=== PATIENT | female | born 1945 | race Caucasian/White ===

== ENCOUNTER 2019-11-15 12:27 | Emergency (ER) | payer MEDICARE ==
[2019-11-15 12:35] VITALS: RESP 18
[2019-11-15] MEDS ORDERED: LIDOCAINE 1% INJ 10MG/ML (20 ML MDV) SQ ONE (12:41)
--- NOTE | 2019-11-15 12:43 | ED ---
Skin/Abscess/FB HPI - General Source: patient Mode of arrival: ambulatory Limitations: no limitations <Becca Santiago - Last Filed: 11/15/19 13:36> <Tricia Coronado - Last Filed: 11/16/19 02:09> - General Chief complaint: Skin/Abscess/Foreign Body Stated complaint: sliver in finger Time Seen by Provider: 11/15/19 12:35 - History of Present Illness Initial comments: Patient is a 73-year-old female presenting to the emergency Department with complaints of a sliver in her right thumb. Patient states she was pulling tall grass 2 days ago and a piece went through her thumb. Patient states she did go to urgent care on that same day and they tried to remove the sliver but was only able to get part of it. Patient was given a tetanus shot as well as antibiotics. She returns today for another trial to remove the sliver. She states she's been having pain and some redness to the area and still believes there is something left in her thumb. She denies any fever or chills. She has no other complaints at this time. (Becca Santiago) - Related Data Allergies Allergy/AdvReac Type Severity Reaction Status Date / Time No Known Allergies Allergy Verified 11/15/19 12:35 Review of Systems ROS Other: All systems not noted in ROS Statement are negative. <Becca Santiago - Last Filed: 11/15/19 13:36> ROS Other: All systems not noted in ROS Statement are negative. <Tricia Coronado - Last Filed: 11/16/19 02:09> ROS Statement: Those systems with pertinent positive or pertinent negative responses have been documented in the HPI. 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 HEAD: Atraumatic, normocephalic. EYES: Pupils equal round and reactive to light, extraocular movements intact, sclera anicteric, conjunctiva are normal. ENT: Moist mucous membranes. NECK: Normal range of motion, supple without lymphadenopathy or JVD. LUNGS: Breath sounds clear to auscultation bilaterally and equal. No wheezes rales or rhonchi. HEART: Regular rate and rhythm without murmurs, rubs or gallops. ABDOMEN: Soft, nontender, normoactive bowel sounds. No guarding, no rebound. No masses appreciated. : Deferred EXTREMITIES: Patient has full range of motion of her right hand and fingers. Normal range of motion, no pitting or edema. No clubbing or cyanosis. NEUROLOGICAL: Normal speech, normal gait. PSYCH: Normal mood, normal affect. SKIN: Warm, Dry, normal turgor,. There is some mild erythema of the palmar aspect of the right distal thumb, as well as a possible sliver felt underneath the skin. (Becca Santiago) Course Vital Signs 11/15/19 11/15/19 12:28 13:47 Temperature 97.5 F L 97.3 F L Pulse Rate 62 66 Respiratory 18 18 Rate Blood Pressure 167/80 143/73 O2 Sat by Pulse 97 99 Oximetry Procedures <Becca Santiago - Last Filed: 11/15/19 13:36> - Procedures Initial comment: 2 mL of 1% lidocaine was injected into the right thumb and small incision was made in attempt to remove sliver. No sliver was found. Patient tolerated procedure well. (Becca Santiago) Medical Decision Making <Becca Santiago - Last Filed: 11/15/19 13:36> <Tircia Coronado - Last Filed: 11/16/19 02:09> - Medical Decision Making Patient is 73-year-old female here for possible sliver in her right thumb, palmar aspect. This happened 2 days ago. Patient is already on Keflex and received a tetanus injection. No attempt was made to remove a sliver however no sliver was seen. Patient's wound was cleaned and topical antibiotic was applied along with a bandage. She will continue with already prescribed antibiotics and keep area clean and dry. Return parameters were discussed with the patient she verbalized understanding. Patient is in agreement with this plan of care. (Becca Santiago) I was available for consultation in the emergency department. The history and physical exam were done by the midlevel provider. I was consulted for this patients care. I reviewed the case with the midlevel provider and based on their presentation of the patient, I agree with the assessment, medical decision making and plan of care as documented. Chart was dictated using Bra[employer] dictation software. Attempts were made to correct any dictation errors however some typographical errors may persist. Patient was seen during a national state of emergency due to the Covid-19 pandemic. (Tricia Coronado) Disposition Is patient prescribed a controlled substance at d/c from ED?: No <Becca Santiago - Last Filed: 11/15/19 13:36> <Tricia Coronado - Last Filed: 11/16/19 02:09> Clinical Impression: Superficial foreign body (sliver) Disposition: HOME SELF-CARE Condition: Stable Instructions (If sedation given, give patient instructions): Antibacterial (On the skin) Additional Instructions: Please return to the Emergency Department if symptoms worsen or any other concerns. Continue with already prescribed antibiotic. Keep thumb clean and dry. Apply topical antibiotic once a day. Follow-up with PCP. Referrals: Jose Miguel Ervin DO [Primary Care Provider] - 1-2 days
[2019-11-15 13:48] VITALS: BP 143/73; PULSE 66; TEMP 97.3
== END 2019-11-15 13:47 | disposition home or self-care (01) ==
LOC: EC 12:27
DX: S60.351A Superficial foreign body of right thumb, initial encounter (principal); W45.8XXA Other foreign body or object entering through skin, initial encounter; Y93.H2 Activity, gardening and landscaping
CPT/HCPCS: 99283; J2001

== ENCOUNTER 2023-07-27 05:58 | Day surgery (SDC) | payer MEDICARE ==
[2023-07-22 12:08] VITALS: BMI 33.9
[2023-07-27] MEDS ORDERED: SODIUM CHLORIDE 0.9% 1,000 ML in EMPTY BAG 1 BAG IV ONE (06:00)
[2023-07-27] MEDS ORDERED: ASPIRIN 81 MG ONE (06:22)
[2023-07-27 06:26] LABS: Glucose,Whole Blood 117 mg/dL (70-110)
[2023-07-27 06:26] LABS: Basophils # (A) 0.1 k/uL (0-0.2); Basophils % (A) 1 %; Eosinophils # (A) 0.3 k/uL (0-0.7); Eosinophils % (A) 3 %; HGB 15.1 gm/dL (11.4-16.0); Lymphocytes # (A) 2.3 k/uL (1.0-4.8); Lymphocytes % (A) 21 %; MCH 29.4 pg (25.0-35.0); MCHC 31.5 g/dL (31.0-37.0); MCV 93.3 fL (80.0-100.0); Mean Platelet Volume 8.4; Monocytes # (A) 0.7 k/uL (0-1.0); Monocytes % (A) 6 %; Neutrophils # (A) 7.4 k/uL (1.3-7.7); Neutrophils % (A) 68 %; Platelet Count 210 k/uL (150-450); RBC 5.15 m/uL (3.80-5.40); RDW 12.4 % (11.5-15.5); WBC 10.9 k/uL (3.8-10.6)
[2023-07-27 06:33] VITALS: RESP 18; TEMP 98.1
[2023-07-27 06:38] LABS: African American GFR (CKD) 82 (>60 ml/min/1.73 sqM); Anion Gap 3 mmol/L; Blood Urea Nitrogen 18 mg/dL (7-17); Calcium 9.3 mg/dL (8.4-10.2); Carbon Dioxide 30 mmol/L (22-30); Chloride 107 mmol/L (98-107); Glucose 131 mg/dL (74-99); Non-African American GFR(CKD) 71 (>60 ml/min/1.73 sqM); Potassium 4.1 mmol/L (3.5-5.1); Sodium 140 mmol/L (137-145)
[2023-07-27] MEDS ORDERED: LIDOCAINE 1% INJ 10MG/ML (20 ML MDV) ONE (07:23)
[2023-07-27] MEDS ORDERED: fentaNYL (PF) 50 MCG/ML 2 ML AMP ONE (07:39)
[2023-07-27] MEDS ORDERED: HEPARIN SODIUM 1,000 UN/ML (10ML VL) ONE (07:39)
[2023-07-27] MEDS: fentaNYL (PF) 50 MCG/ML 2 ML AMP IVP ONE ×3 (07:41→08:37)
[2023-07-27] MEDS: MIDAZOLAM 2 MG/2 ML VIAL IVP ONE ×2 (07:41→08:03)
[2023-07-27] MEDS ORDERED: LIDOCAINE 1% INJ 10MG/ML (20 ML MDV) SQ ONE (07:41)
[2023-07-27] MEDS: HEPARIN SODIUM 1,000 UN/ML (10ML VL) IV ONE ×2 (07:57→09:11)
[2023-07-27] MEDS ORDERED: IOPAMIDOL-370 100ML BTL INJ ONE (09:36)
--- NOTE | 2023-07-27 09:58 | P.OP ---
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 Procedure(s) Performed: Ultrasound guided right common femoral artery access Aortogram Selective left lower extremity angiogram 3rd order Percutaneous transluminal balloon angioplasty of the left anterior tibial artery Percutaneous transluminal balloon angioplasty of the left peroneal artery Percutaneous closure of the right femoral access Conscious sedation x 114 minutes Anesthesia: local Surgeon: Dm Enrique Estimated Blood Loss (ml): 10 Pathology: none sent Condition: stable Disposition: PACU Indications for Procedure: 77 year old female with non healing left foot wound with slight decrease in DHRUV on the left with poor waveforms below the knee presents to the laborer drying department for aortogram and left lower extremity revascularization. Operative Findings: Aorta, left Iliacs, femoral, popliteal arteries patent without any significant stenosis noted. Tibial peroneal trunk is patent. Left posterior tibial artery occluded without reconstitution noted. 80mm left anterior tibial artery occlusion with immediate reconstitution Left peroneal artery multiple areas stenosis Description of Procedure: After written informed consent was obtained the patient all risks benefits competitions were described the patient is brought to the Mail Deliverer and laid in a supine position. The area of the right groin was prepped and draped in the usual sterile fashion. Local anesthesia with moderate sedation was performed with continuous pulse ox monitoring and EKG monitoring. Utilizing ultrasound the right femoral artery was visualized and shown to be patent without any significant plaque. Utilizing a multipurpose needle under ultrasound guidance the artery was accessed. Guidewire was placed followed by 5F sheath. 035 Glidewire was then placed into the aorta followed by pigtail catheter. Angiogram was then obtained of the aorta. Catheter was then placed up and over into the left iliac artery and selective angiogram was obtained. Occlusion was noted at the left anterior tibial artery and therefore a glidwire advantage was placed followed by an up and over 5F sheath. Multiple guidewires, catheters and crossing catheters were then used and the lesion was finally crossed and distal angiogram was obtained demonstrating good intraluminal access. Balloon angioplasty was then performed across the lesion with a [id number] balloon and a 2.5x40mm balloon with significant improvement of the flow and occlusion. There was still residual area of stenosis but the flow was brisk and therefore attention was then placed to the peroneal artery. A wire was placed distally across the areas of stenosis and balloon angioplasty was then performed with the [id number] balloon. Final angiogram demonstrated brisk flow to the foot with one vessel AT to the ankle. Once completed all guidewires, catheters and sheaths were removed, Vascade was placed in usual fashion and pressure was placed for hemostasis. Patient tolerated procedure well was sent to PACU for recovery Plan - Discharge Summary Discharge Rx Participant: Yes New Discharge Prescriptions: No Action Escitalopram [Lexapro] 20 mg PO DAILY RX: Rosuvastatin Calcium 5 mg PO DAILY Oxybutynin Chloride [oxyBUTYnin chloride ER] 10 mg PO DAILY Losartan Potassium [Cozaar] 150 mg PO DAILY Acetaminophen Tab [Tylenol Tab] 500 mg PO DIRECTED sitaGLIPtin [Januvia] 100 mg PO DAILY Glimepiride [Amaryl] 4 mg PO -[facility] RX: Omeprazole 20 mg PO DAILY Torsemide [Demadex] 10 mg PO DAILY Ibuprofen [Motrin Ib] 200 mg PO DAILY PRN PRN Reason: Pain Discharge Medication List Acetaminophen Tab [Tylenol Tab] 500 mg PO DIRECTED 07/22/23 [History] Escitalopram [Lexapro] 20 mg PO DAILY 07/22/23 [History] Glimepiride [Amaryl] 4 mg PO AC-BRKFST 07/22/23 [History] Ibuprofen [Motrin Ib] 200 mg PO DAILY PRN 07/22/23 [History] Losartan Potassium [Cozaar] 150 mg PO DAILY 07/22/23 [History] Oxybutynin Chloride [oxyBUTYnin chloride ER] 10 mg PO DAILY 07/22/23 [History] RX: Omeprazole 20 mg PO DAILY 07/22/23 [History] RX: Rosuvastatin Calcium 5 mg PO DAILY 07/22/23 [History] Torsemide [Demadex] 10 mg PO DAILY 07/22/23 [History] sitaGLIPtin [Januvia] 100 mg PO DAILY 07/22/23 [History] Discharge Disposition: HOME SELF-CARE
[2023-07-27] MEDS ORDERED: CLOPIDOGREL 75 MG TAB PO STA (10:10)
[2023-07-27] MEDS ORDERED: CLOPIDOGREL 75 MG TAB ONE (10:12)
--- NOTE | 2023-07-27 12:10 | IR ---
EXAMINATION TYPE: IR fire prevention captain tibioperoneal branchs Intraoperative/procedural fluoroscopic services were provided. Total fluoroscopy time is 44.8 minutes with a total of 986 submitted images to PACS. Marychuy woodall see the operative/procedural note for further details. DAP: 30.2 Gycm2
[2023-07-27 12:52] VITALS: BP 149/74; PULSE 84
[2023-07-27] MEDS ORDERED: ACETAMINOPHEN TAB 325 MG TAB ONE (13:07)
[2023-07-27] MEDS ORDERED: ACETAMINOPHEN TAB 325 MG TAB PO STA (13:07)
== END 2023-07-27 14:56 | disposition home or self-care (01) ==
LOC: CATHCVL 05:58
PROVIDERS: ATTEND Surgery
DX: I70.222 Atherosclerosis of native arteries of extremities with rest pain, left leg (principal); M21.619 Bunion of unspecified foot; E11.9 Type 2 diabetes mellitus without complications; E78.5 Hyperlipidemia, unspecified; I10 Essential (primary) hypertension; G57.60 Lesion of plantar nerve, unspecified lower limb; F10.90 Alcohol use, unspecified, uncomplicated; Z79.2 Long term (current) use of antibiotics; Z79.84 Long term (current) use of oral hypoglycemic drugs; Z79.899 Other long term (current) drug therapy; Z90.710 Acquired absence of both cervix and uterus; Z98.890 Other specified postprocedural states; Z82.49 Family history of ischemic heart disease and other diseases of the circulatory system
CPT/HCPCS: 36247; 37228; 37232; 75625; 75710; 76937; 80048; 85025; 99152; 99153 ×4; C1894 ×3; C1725 ×2; C1769 ×5; C1887; C1760; J2250; J2001; J3010; J1644; Q9967

== ENCOUNTER 2023-07-29 11:52 | Emergency (ER) | payer MEDICARE ==
[2023-07-29 13:07] VITALS: RESP 18
--- NOTE | 2023-07-29 13:11 | ED ---
Extremity Problem HPI - General Chief complaint: Extremity Problem,Nontraumatic Stated complaint: Pain in leg/ post surgery Time Seen by Provider: 07/29/23 12:55 Source: patient, RN notes reviewed Mode of arrival: wheelchair Limitations: no limitations - History of Present Illness Initial comments: Patient is a 77-year-old female presented to the ER with chief complaint of left lower extremity bruising. Patient underwent an angiogram by Dr. Enrique on 07-27-2023. Patient states she has been noticing increasing bruising since. Patient states that it is painful. Patient denies any chest pain, shortness of breath, abdominal pain, urinary symptoms, or any other complaints at this time. - Related Data Home Medications Medication Instructions Recorded Confirmed Acetaminophen Tab [Tylenol Tab] 500 mg PO DIRECTED 07/22/23 07/27/23 Escitalopram [Lexapro] 20 mg PO DAILY 07/22/23 07/27/23 Glimepiride [Amaryl] 4 mg PO AC-BRKFST 07/22/23 07/27/23 Ibuprofen [Motrin Ib] 200 mg PO DAILY PRN 07/22/23 07/27/23 Losartan Potassium [Cozaar] 150 mg PO DAILY 07/22/23 07/27/23 Omeprazole 20 mg PO DAILY 07/22/23 07/27/23 Oxybutynin Chloride [oxyBUTYnin 10 mg PO DAILY 07/22/23 07/27/23 chloride ER] Rosuvastatin Calcium 5 mg PO DAILY 07/22/23 07/27/23 Torsemide [Demadex] 10 mg PO DAILY 07/22/23 07/27/23 sitaGLIPtin [Januvia] 100 mg PO DAILY 07/22/23 07/27/23 Allergies Allergy/AdvReac Type Severity Reaction Status Date / Time No Known Allergies Allergy Verified 07/29/23 12:46 Review of Systems ROS Statement: Those systems with pertinent positive or pertinent negative responses have been documented in the HPI. ROS Other: All systems not noted in ROS Statement are negative. 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 Absent: respiratory distress, wheezes, rales, rhonchi, stridor Cardiovascular Exam: Present: regular rate, normal rhythm, normal heart sounds. Absent: systolic murmur, diastolic murmur, rubs, gallop, clicks Neurological exam: Present: alert, oriented X3, CN II-XII intact Psychiatric exam: Present: normal affect, normal mood Skin exam: Present: warm, dry, intact, normal color, other (Large contusion to right upper medial thigh. Tender to touch. Faint 1+ left dorsalis pedis pulse. There is also a wound on the left great toe. 2+ right dorsalis pedis pulse.). Absent: rash Course Vital Signs 07/29/23 12:42 Temperature 97.8 F Pulse Rate 65 Respiratory 18 Rate Blood Pressure 168/76 O2 Sat by Pulse 98 Oximetry Medical Decision Making - Medical Decision Making Was pt. sent in by a medical professional or institution (, PA, CUSTOMS PATROL OFFICER, urgent care, hospital, or shelter...) When possible be specific @ -No Did you speak to anyone other than the patient for history (EMS, parent, family, police, friend...)? What history was obtained from this source @ -No Did you review nursing and triage notes (agree or disagree)? Why? @ -I reviewed and agree with nursing and triage notes Were old charts reviewed (outside hosp., previous admission, EMS record, old EKG, old radiological studies, urgent care reports/EKG's, shelter records)? Report findings @ -No old charts were reviewed Differential Diagnosis (chest pain, altered mental status, abdominal pain women, abdominal pain men, vaginal bleeding, weakness, fever, dyspnea, syncope, headache, dizziness, GI bleed, back pain, seizure, CVA, palpatations, mental health, musculoskeletal)? @ -Differential Musculoskeletal Muscular strain, contusion, ligament sprain, fracture, arthritis, septic arthritis, bursitis, cellulitis, muscle spasm, nerve compression, DVT, arterial occlusion, herpes zoster, electrolyte abnormality, tumor.... This is not meant to be in all inclusive list EKG interpreted by me (3pts min.). @ -None X-rays interpreted by me (1pt min.). @ -None done CT interpreted by me (1pt min.). @ -None done U/S interpreted by me (1pt. min.). @ -Ultrasound right lower extremity pseudo was negative for acute pseudoaneurysm. There is a suspected hematoma adjacent to the artery. What testing was considered but not performed or refused? (CT, X-rays, U/S, labs)? Why? @ -None What meds were considered but not given or refused? Why? @ -None Did you discuss the management of the patient with other professionals (professionals i.e. , PA, CUSTOMS PATROL OFFICER, lab, RT, psych nurse, long term care social worker, manager event, teacher, co founder and chief strategy officer, bilingual case manager)? Give summary @ -No Was smoking cessation discussed for >3mins.? @ -No Was critical care preformed (if so, how long)? @ -No Were there social determinants of health that impacted care today? How? ( Homelessness, low income, unemployed, alcoholism, drug addiction, transportation, low edu. Level, literacy, decrease access to med. care, detention, rehab)? @ -No Was there de-escalation of care discussed even if they declined (Discuss DNR or withdrawal of care, Hospice)? DNR status @ -No What co-morbidities impacted this encounter? (DM, HTN, Smoking, COPD, CAD, Cancer, CVA, ARF, Chemo, Hep., AIDS, mental health diagnosis, sleep apnea, morbid obesity)? @ -PAD, obesity Was patient admitted / discharged? Hospital course, mention meds given and route, prescriptions, significant lab abnormalities, going to OR and other pertinent info. @ -Discharge. Patient is a 77-year-old female presented to the ER with a chief complaint of right lower extremity bruising post angiogram. Patient underwent angiogram of right LE on 07/27/[address] Enrique. Vitals stable. History and physical exam were completed. Patient was in no signs of acute distress. Bilateral lower extremities neurovascularly intact. Ultrasound of right lower extremity pseudo was negative for acute pseudoaneurysm. There is a suspected hematoma adjacent to the artery. I discussed imaging findings with patient. Advised her to follow-up with Dr. Enrique as scheduled. Return parameters were discussed. Patient will be discharged stable condition with follow-up to PCP/Dr. Enrique. Patient expressed understanding and agreement with care plan. Undiagnosed new problem with uncertain prognosis? @ -No Drug Therapy requiring intensive monitoring for toxicity (Heparin, Nitro, Insulin, Cardizem)? @ -No Were any procedures done? @ -No Diagnosis/symptom? @ -Hematoma of right LE/contusion Acute, or Chronic, or Acute on Chronic? @ -Acute Uncomplicated (without systemic symptoms) or Complicated (systemic symptoms)? @ -Uncomplicated Side effects of treatment? @ -No Exacerbation, Progression, or Severe Exacerbation? @ -No Poses a threat to life or bodily function? How? (Chest pain, [place], [place], pneumonia, PE, COPD, DKA, ARF, appy, cholecystitis, CVA, Diverticulitis, Homicidal, Suicidal, threat to staff... and all critical care pts) @ -No - Radiology Data Radiology results: report reviewed, image reviewed Disposition Clinical Impression: Hematoma Disposition: HOME SELF-CARE Condition: Stable Instructions (If sedation given, give patient instructions): Angiogram (DC) Additional Instructions: Please follow-up with Dr. Enrique as scheduled. Return to ER for any new or worsening symptoms. Is patient prescribed a controlled substance at d/c from ED?: No Referrals: Jose Miguel Ervin DO [Primary Care Provider] - 1-2 days Dm Enrique DO [STAFF PHYSICIAN] - 1-2 days Time of Disposition: 14:18
--- NOTE | 2023-07-29 13:57 | US ---
EXAMINATION TYPE: US lower ext pseudo artery RT DATE OF EXAM: 07/29/2023 COMPARISON: NONE CLINICAL INDICATION: Female, 77 years old with history of bruising; procedure with rt groin approach on Tuesday, bruising and pain EXAM PERFORMED: Grayscale and color Doppler duplex imaging performed of the groin, post cardiac karen ter to assess for pseudoaneurysm. SIDE PERFORMED: Right Color and Waveform Doppler performed to assess for the presence of pseudoaneurysm; Is there ultrasound evidence of a pseudoaneurysm: no Is there evidence of AV shunting: no Is there a fluid collection present: possible 1.3 x 1.0 x 1.1 cm fluid collection vs thrombosed area adjacent to artery. Area is avascular but is difficult to appreciate due to body habitus and edema IMPRESSION: Suspected hematoma adjacent to the artery which is suboptimally evaluated due to patient body habitus.
[2023-07-29 14:52] VITALS: BP 148/86; PULSE 72; TEMP 97.9
== END 2023-07-29 14:33 | disposition home or self-care (01) ==
LOC: EC 11:52
DX: S70.11XA Contusion of right thigh, initial encounter (principal); E11.9 Type 2 diabetes mellitus without complications; Z79.84 Long term (current) use of oral hypoglycemic drugs; X58.XXXA Exposure to other specified factors, initial encounter
CPT/HCPCS: 93975; 99283

== ENCOUNTER → 2023-10-18 | Outpatient (CLI) | payer MEDICARE ==
[2023-10-18 22:14] LABS: NT-Pro-B-Type Natriuretic Pept 657 pg/mL (0-450)
[2023-10-18 22:22] LABS: ALT 26 U/L (8-44); AST 20 U/L (13-35); Albumin/Globulin Ratio 1.54 Ratio (1.60-3.17); Alkaline Phosphatase 118 U/L (41-126); BUN/Creat Ratio 23.88 Ratio (12.00-20.00); Blood Urea Nitrogen 19.1 mg/dL (9.0-27.0); Calcium 9.4 mg/dL (8.7-10.3); Carbon Dioxide 25.9 mmol/L (21.6-31.8); Chloride 102 mmol/L (96-109); Globulin 2.6 g/dL (1.6-3.3); Glucose 182 mg/dL (70-110); Potassium 4.6 mmol/L (3.5-5.5); Sodium 140 mmol/L (135-145); Total Bilirubin 0.3 mg/dL (0.3-1.2); Total Protein 6.6 g/dL (6.2-8.2)
== END | disposition home or self-care (01) ==
LOC: LABWHC1 10:48
PROVIDERS: ATTEND Student in an Organized Health Care Education/Training Program
DX: I50.9 Heart failure, unspecified (principal)
CPT/HCPCS: 36415; 80053; 83880; 84443

== ENCOUNTER → 2023-10-20 | Outpatient (CLI) | payer MEDICARE | END | disposition home or self-care (01) | LOC: RADUSWWP 07:38 | PROVIDERS: ATTEND Student in an Organized Health Care Education/Training Program | DX: Z53.9 Procedure and treatment not carried out, unspecified reason (principal) ==

== ENCOUNTER 2023-11-08 05:55 | Inpatient (IN) | payer MEDICARE ==
[2023-11-07 12:06] VITALS: BMI 34.5
[~2023-11-08 05:55] MED LIST: Pre Op ABX Message 1 EACH MISC MISCELLANE ONE
[2023-11-08 07:01] LABS: Glucose,Whole Blood 156 mg/dL (70-110)
[2023-11-08] MEDS: LIDOCAINE 1% INJ 10MG/ML (20 ML MDV) SQ ONE (07:29)
[2023-11-08] MEDS: GABAPENTIN 400 MG CAP PO STA (07:32)
--- NOTE | 2023-11-08 07:42 | P.PCN ---
Date of Procedure: 11/08/23 Preoperative Diagnosis: Chronic left great toe amputation infection, need for tank terminal gauger IV antibiotics Postoperative Diagnosis: Same Procedure(s) Performed: Left upper extremity basilic vein PICC placement under ultrasound and fluoroscopic guidance Anesthesia: local Surgeon: Dm Enrique Estimated Blood Loss (ml): 5 Pathology: none sent Condition: stable Disposition: PACU Description of Procedure: After written and informed consent was obtained the patient and all risks, be nefits and competitions were described the patient was brought to the Teaching Artist and laid in a supine position with the patients left arm outstretched on an armboard. The area of the left arm was prepped and draped in usual sterile fashion. Timeout was performed in normal fashion. Utilizing ultrasound the basilic vein was visualized and shown to be compressible without any visible thrombus. Under ultrasound guidance the basilic vein was then cannulated with a micropuncture needle and wire was placed under direct visualization of fluoroscopy. Introducer sheath was then placed. The catheter was measured and cut to the appropriate length which was 41 cm. The catheter was then guided through the breakaway sheath and the sheath was removed with good positioning was visualized under fluoroscopy. The catheter was pulled and flushed easily. It was then secured in place in normal fashion. Patient tolerated the procedure well was sent back to his room for recovery.
[2023-11-08] MEDS: HYDROcodone/APAP 7.5-325MG 1 EACH TAB ONE (07:47)
[2023-11-08] MEDS: LOSARTAN 50 MG TAB PO STA (07:49)
[2023-11-08] MEDS: hydroCHLOROthiazide 25 MG TAB PO ONE (07:49)
--- NOTE | 2023-11-08 08:46 | IR ---
EXAMINATION TYPE: IR cvc insert >=5 years DATE OF EXAM: 11/08/2023 COMPARISON: NONE HISTORY: Fluoroscopy time. Fluoroscopy was provided to the referring clinician.
[2023-11-08 11:12] LABS: Glucose,Whole Blood 128 mg/dL (70-110)
[2023-11-08] MEDS: LACTATED RINGERS 1,000 ML IV SCH (11:28)
[2023-11-08] MEDS: DEXAMETHASONE SOD PHOSPHATE 4 MG/ML 1 ML VIAL IV ONE (11:29)
[2023-11-08] MEDS: ONDANSETRON 4 MG/2 ML VIAL IVP ONE (11:29)
[2023-11-08] MEDS: METOCLOPRAMIDE 5 MG/ML 2 ML VIAL ONE (11:29)
[2023-11-08] MEDS ORDERED: LIDOCAINE 1% INJ 10MG/ML (20 ML MDV) ONE (12:15)
[2023-11-08] MEDS ORDERED: MIDAZOLAM 2 MG/2 ML VIAL ONE (12:15)
[2023-11-08] MEDS ORDERED: PROPOFOL 10 MG/ML 20 ML VIAL IV ONE (12:15)
[2023-11-08] MEDS ORDERED: KETAMINE HCL IN 0.9 % NACL 50 MG/5 ML SYRINGE ONE (12:15)
[2023-11-08] MEDS ORDERED: fentaNYL (PF) 50 MCG/ML 2 ML AMP ONE (12:15)
[2023-11-08] MEDS: HYDROmorphone 0.5 MG/0.5 ML SYRINGE IVP PRN (13:02)
[2023-11-08] MEDS ORDERED: VANCOMYCIN IV PER PHARMACY 1 EACH MISC MISCELLANE PRN (14:31)
[2023-11-08] MEDS: LACTATED RINGERS 1,000 ML IV ONE (15:00)
[2023-11-08 15:38] LABS: Glucose,Whole Blood 117 mg/dL (70-110)
[2023-11-08] MEDS: HYDROcodone/APAP 7.5-325MG 1 EACH TAB PO PRN (16:08)
[2023-11-08] MEDS: VANCOMYCIN 1,500 MG in SODIUM CHLORIDE 0.9% 500 ML 500 ML IVPB ONE (16:08)
--- NOTE | 2023-11-08 16:24 | P.OP ---
Date of Procedure: 11/08/23 Preoperative Diagnosis: Left great toe amputation wound Postoperative Diagnosis: same Procedure(s) Performed: Left great toe amputation wound excisional debridement, deep wound culture and skin substitute placement Implants: Puraply AM and powder Anesthesia: MAC Surgeon: Dm Enrique Estimated Blood Loss (ml): 5 Pathology: other (deep wound culture) Condition: stable Disposition: PACU Indications for Procedure: 77 year old female with history of left great toe amputation for gangrene presented to the office with non healing surgical site and infection. She was placed on antibiotics, has been going for hyperbaric treatments and now presents for debridement and skin substitute placement. She states she is unable to walk due to the pain in her foot and would like to be placed in rehab. Operative Findings: Fibrinous tissue at the wound bed site, no purulent drainage Wound measured [id number] Description of Procedure: After written and informed consent the patient was brought to the operative suite and laid in a supine position. The area of the left foot was prepped and draped in the usual fashion. Timeout was performed in usual fashion and antibiotics administered prior to incision. Using a scalpel, sharp debridement was performed at the wound bed with removal of ischemic tissue and fibrinous tissue down to the fascia. There was no significant purulence noted. A deep tissue and fluid culture was then obtained and sent off for pathology. Continued debridement was performed till bleeding tissue was noted. The wound bed measured 60mm x 20mm x 4mm in depth. The area was then irrigated and skin substitute was placed. Due to the depth, Puraply powder was placed within the wound bed and then Puraply AM was placed overtop. The area was then bolstered with adaptic, and steri strips. The skin was cleansed and dressings were placed over the adaptic and patient was sent to PACU for recovery.
[2023-11-08] MEDS: CEFEPIME 2 GM in SODIUM CHLORIDE 0.9% 100 ML IVPB SCH (17:05)
[2023-11-08 17:29] LABS: ALT 23 U/L (4-34); AST 24 U/L (14-36); African American GFR (CKD) >90 (>60 ml/min/1.73 sqM); Albumin 3.3 g/dL (3.5-5.0); Albumin/Globulin Ratio 1.2; Alkaline Phosphatase 96 U/L (38-126); Anion Gap 6 mmol/L; Blood Urea Nitrogen 16 mg/dL (7-17); C Reactive Protein <0.5 mg/dL (<1.0); Calcium 8.7 mg/dL (8.4-10.2); Carbon Dioxide 27 mmol/L (22-30); Chloride 106 mmol/L (98-107); Globulin 2.8 g/dL; Glucose 150 mg/dL (74-99); Non-African American GFR(CKD) 88 (>60 ml/min/1.73 sqM); Potassium 4.7 mmol/L (3.5-5.1); Sodium 139 mmol/L (137-145); Total Bilirubin 0.3 mg/dL (0.2-1.3); Total Protein 6.1 g/dL (6.3-8.2)
[2023-11-08 17:33] LABS: Basophils % (A) 0 %; Eosinophils % (A) 0 %; HCT 42.7 % (34.0-46.0); HGB 13.1 gm/dL (11.4-16.0); Hypochromasia Moderate; Lymphocytes # (A) 0.7 k/uL (1.0-4.8); Lymphocytes % (A) 9 %; MCH 28.4 pg (25.0-35.0); MCHC 30.6 g/dL (31.0-37.0); MCV 92.9 fL (80.0-100.0); Mean Platelet Volume 8.6; Monocytes # (A) 0.2 k/uL (0-1.0); Monocytes % (A) 3 %; Neutrophils # (A) 6.8 k/uL (1.3-7.7); Neutrophils % (A) 87 %; Platelet Count 173 k/uL (150-450); RDW 12.5 % (11.5-15.5); WBC 7.8 k/uL (3.8-10.6)
[2023-11-08] MEDS: GABAPENTIN 400 MG CAP PO SCH (19:46)
[2023-11-08 19:50] LABS: Glucose,Whole Blood 216 mg/dL (70-110)
[2023-11-08] MEDS: INSULIN ASPART (NovoLOG) 100 UNIT/ML VIAL SQ SCH (21:10)
--- NOTE | 2023-11-08 22:17 | P.CONS ---
History of Present Illness - Reason for Consult Consult date: 11/08/23 Antibiotic recommendation Requesting physician: Ana M Alcantar - Chief Complaint Nonhealing left foot wound X days - History of Present Illness Patient is a 77-year-old female with a past medical significant for diabetes mellitus hypertension hyperlipidemia patient did have a history of left big toe gangrene/diabetic foot infection requiring left big toe amputation patient culture was positive for MRSA back in August 2023 for the patient has completed course of antibiotic therapy patient was recently noticed to have worsening of the left foot big toe amputation site wound and cultures were obtained which grew MRSA and Pseudomonas and Proteus mirabilis unfortunately because of her drug interaction we did not have any oral option available and were in the process of getting a PICC line and outpatient IV antibiotic arrangement patient has been brought back to the hospital for left big toe amputation site wound excisional debridement deep culture and skin substitute placement procedure was completed this afternoon infectious disease was consulted for further management of antibiotic therapy patient did have a PICC line placement this morning by vascular surgery. Patient time my evaluation is afebrile patient is currently breathing comfortable on 2 L nasal cannula oxygen patient has been recovering from her anesthesia as she was seen in the recovery was mostly sleepy lethargic and cannot void By history Review of Systems Positive point and negatives has been mentioned in the HPI, complete review of systems was performed and all other systems are negative Past Medical History Past Medical History: Diabetes Mellitus, Hyperlipidemia, Hypertension Additional Past Medical History / Comment(s): post polio syndrome, LE EDEMA History of Any Multi-Drug Resistant Organisms: MRSA Year Discovered:: 08/29/23 MDRO Source:: Toe Left 1st Past Surgical History: Appendectomy, Hysterectomy, Tonsillectomy Additional Past Surgical History / Comment(s): LEFT GREAT TOE AMPUTATED. LEFT LEG REVASCULARIZATION Past Anesthesia/Blood Transfusion Reactions: No Reported Reaction Past Psychological History: No Psychological Hx Reported Smoking Status: Never smoker Past Alcohol Use History: Occasional Past Drug Use History: None Reported - Past Family History Mother Family Medical History: Congestive Heart Failure (CHF) Medications and Allergies Home Medications Medication Instructions Recorded Confirmed Type Acetaminophen Tab [Tylenol] 1,500 mg PO Q4H PRN 07/22/23 11/08/23 History Escitalopram [Lexapro] 30 mg PO QAM 07/22/23 11/08/23 History Glimepiride [Amaryl] 2 mg PO BID 07/22/23 11/08/23 History Omeprazole 20 mg PO QAM 07/22/23 11/08/23 History Oxybutynin Chloride [oxyBUTYnin 10 mg PO QAM 07/22/23 11/08/23 History chloride ER] Rosuvastatin Calcium 5 mg PO DAILY 07/22/23 11/08/23 History sitaGLIPtin [Januvia] 100 mg PO DAILY 07/22/23 11/08/23 History Clopidogrel Bisulfate [Clopidogrel] 75 mg PO DAILY 08/29/23 11/07/23 History Losartan/Hydrochlorothiazide 1 tab PO QAM 08/29/23 11/08/23 History [Losartan-Hctz 100-25 mg Tab] INSULIN ASPART (NovoLOG) [NovoLOG 0 unit SQ ACHS each 09/01/23 11/08/23 Rx (formulary)] Nf-Spironolactone Dose Unk 12.5 mg PO DIRECTED 11/07/23 11/08/23 History Acetaminophen [Tylenol Extra 1,000 mg PO Q6HR PRN 11/08/23 11/08/23 History Strength] Empagliflozin [Jardiance] 10 mg PO DAILY 11/08/23 11/08/23 History Loratadine [Claritin] 5 mg PO DAILY 11/08/23 11/08/23 History Saliva Stimulant Comb. No.3 1 spray MUCOUS MEM BID PRN 11/08/23 11/08/23 History [Biotene Moisturizing Mouth] Sennosides/Docusate Sodium [Senna 1 each PO BID 11/08/23 11/08/23 History Plus 8.6-50 mg Softgel] Spironolactone [Aldactone] 12.5 mg PO DAILY 11/08/23 11/08/23 History guaiFENesin [Diabetic Tussin Ex] 10 mg PO Q4HR PRN 11/08/23 11/08/23 History Gabapentin [Neurontin] 400 mg PO BID 3 Days #6 cap 11/10/23 Rx HYDROcodone/APAP 7.5-325MG [[place] 1 each PO Q6HR PRN 3 Days #12 tab 11/10/23 Rx 7.5-325] Cefepime [Maxipime] 2 gm IVPB Q8HR each 11/11/23 Rx Vancomycin 1,500 mg IVPB Q16H each 11/11/23 Rx metroNIDAZOLE [Flagyl] 500 mg PO TID #90 tab 11/11/23 Rx Allergies Allergy/AdvReac Type Severity Reaction Status Date / Time No Known Allergies Allergy Verified 11/07/23 11:17 Physical Exam Vitals: Vital Signs Temp Pulse Resp BP Pulse Ox 11/08/23 13:45 97 F L 62 16 120/58 97 11/08/23 13:30 60 16 118/62 95 11/08/23 13:15 68 16 117/56 97 11/08/23 13:00 97 F L 69 16 132/77 97 11/08/23 11:27 97.9 F 70 20 140/67 99 11/08/23 10:57 97.9 F 70 20 140/67 99 11/08/23 07:23 98.4 F 74 16 173/77 97 Intake and Output 11/07/23 11/08/23 11/08/23 22:59 06:59 14:59 Intake Total 250 Output Total 2 Balance 248 Intake: IV 250 Output: Estimated Blood Loss 2 Other: Weight 97.069 kg GENERAL DESCRIPTION: Elderly female lying in bed, no distress. No tachypnea or accessory muscle of respiration use. HEENT: Shows Pallor , no scleral icterus. Oral mucous membrane is dry. No pharyngeal erythema or thrush NECK: Trachea central, no thyromegaly. LUNGS: Unlabored breathing. Clear to auscultation anteriorly. No wheeze or crackle. HEART: S1, S2, regular rate and rhythm. No loud murmur ABDOMEN: Soft, no tenderness , guarding or rigidity, no organomegaly EXTREMITIES: Left foot wound is currently dressed no drainage on dressing SKIN: No rash, no masses palpable. NEUROLOGICAL: The patient is slightly sleepy lethargic Results CBC & Chem 7: 11/10/23 03:09 11/11/23 05:30 Labs: Abnormal Lab Results - Last 24 Hours (Table) 11/08/23 11/08/23 Range/Units 06:58 11:10 POC Glucose (mg/dL) 156 H 128 H (70-110) mg/dL Assessment and Plan (1) Diabetic infection of left foot Status: Acute Code(s): E11.628 - TYPE 2 DIABETES MELLITUS WITH OTHER SKIN COMPLICATIONS; L08.9 - LOCAL INFECTION OF THE SKIN AND SUBCUTANEOUS TISSUE, UNSP SNOMED Code(s): 58533233 (2) Foot osteomyelitis, left Status: Acute Code(s): M86.9 - OSTEOMYELITIS, UNSPECIFIED SNOMED Code(s): 1061936370135761 (3) MRSA (methicillin resistant staph aureus) culture positive Status: Acute Code(s): Z22.322 - CARRIER OR SUSPECTED CARRIER OF METHICILLIN RESIS STAPH SNOMED Code(s): 592566042 Plan: 1patient with a left diabetic foot infection and nonhealing wound in this patient who did have a history of left big toe gangrene status post amputation previous culture positive for MRSA for the patient completed a course of vancomycin with recent worsening and repeat culture now growing MRSA Pseudomonas and Proteus Mirabelis in this patient who status post sharp excisional debridement and deep culture completed on 11/08/2023 2-we will obtain blood cultures CRP sed rate 3-we will start the patient on vancomycin pharmacy to dose and cefepime 2 g every 8 hours We will follow on clinical condition and cultures to further adjust medication if needed Thank you for this consultation we will follow the patient along with you Dictation was produced using [employer] dictation software. please excuse any grammatical, word or spelling errors. Time with Patient: Greater than 30
[2023-11-09 03:51] LABS: Erythrocyte Sedimentation Rate 18 mm/Hr (0-30)
[2023-11-09] MEDS: VANCOMYCIN 1,500 MG in SODIUM CHLORIDE 0.9% 500 ML 500 ML IVPB SCH (04:17)
[2023-11-09 05:10] LABS: African American GFR (CKD) >90 (>60 ml/min/1.73 sqM); Non-African American GFR(CKD) 85 (>60 ml/min/1.73 sqM)
[2023-11-09 06:19] LABS: Glucose,Whole Blood 202 mg/dL (70-110)
[2023-11-09] MEDS: LORATADINE 10 MG TAB PO SCH (09:02)
[2023-11-09] MEDS: GLIMEPIRIDE 2 MG TAB PO SCH (09:02)
[2023-11-09] MEDS: SPIRONOLACTONE 25 MG TAB PO SCH (09:03)
[2023-11-09] MEDS: ATORVASTATIN 10 MG TAB PO SCH (09:03)
[2023-11-09] MEDS: PANTOPRAZOLE 40 MG TABLET PO SCH (09:03)
[2023-11-09] MEDS: SENNOSIDES-DOCUSATE SODIUM 1 EACH TAB PO SCH (09:04)
[2023-11-09] MEDS: DAPAGLIFLOZIN PROPANEDIOL 5 MG TABLET PO SCH (09:05)
[2023-11-09] MEDS: LINAGLIPTIN 5 MG TABLET PO SCH (09:05)
[2023-11-09] MEDS: CLOPIDOGREL 75 MG TAB PO SCH (09:05)
[2023-11-09] MEDS: OXYBUTYNIN 10 MG TAB.ER.24 PO SCH (10:31)
[2023-11-09] MEDS: LOSARTAN-HCTZ 50-12.5 MG 1 EACH TAB PO SCH (10:31)
[2023-11-09 11:56] LABS: Glucose,Whole Blood 134 mg/dL (70-110)
[2023-11-09] MEDS: ACETAMINOPHEN TAB 325 MG TAB PO PRN (12:59)
--- NOTE | 2023-11-09 13:48 | P.PN ---
Subjective Progress Note Date: 11/09/23 Principal diagnosis: Left great toe amputation site infection 77-year-old female who was scheduled for outpatient excisional debridement of prior left great toe amputation wound with skin substitute placement and PICC line placement requiring inpatient admission for IV antibiotics and physical/occupational therapy. Patient will require subacute rehab for IV antibiotics and physical therapy. Patient is seen and examined today as a follow-up. Patient states pain is being well-managed. She has been afebrile. Infectious diseases following and she is receiving IV cefepime and vancomycin. Objective - Vital Signs Vital signs: Vital Signs Temp 97.6 F 11/09/23 07:07 Pulse 59 L 11/09/23 07:07 Resp 19 11/09/23 07:07 BP 124/55 11/09/23 07:07 Pulse Ox 100 11/09/23 07:07 FiO2 Intake & Output 11/08/23 11/09/23 11/09/23 18:59 06:59 18:59 Intake Total 750 Output Total 2 Balance 748 Weight 97.069 kg Intake: IV 750 Output: Estimated Blood Loss 2 - Exam General appearance: The patient is alert, oriented, appears in no acute distress. HET: Head is normocephalic and atraumatic. Pupils are equal and reactive. Neck: Supple. Heart: Regular. Lungs: Equal expansion, normal respiratory effort. Abdomen: Soft, nondistended. Extremities: Left foot with dressing clean dry and intact. Neurological: No focal deficits. Alert and oriented. - Labs CBC & Chem 7: 11/08/23 16:47 11/09/23 04:24 Labs: Abnormal Lab Results - Last 24 Hours (Table) 11/08/23 11/08/23 11/08/23 Range/Units 11:10 15:36 16:47 MCHC 30.6 L (31.0-37.0) g/dL Lymphocytes # 0.7 L (1.0-4.8) k/uL Glucose (74-99) mg/dL POC Glucose (mg/dL) 128 H 117 H (70-110) mg/dL Total Protein (6.3-8.2) g/dL Albumin (3.5-5.0) g/dL 11/08/23 11/08/23 11/09/23 Range/Units 16:47 19:48 06:18 MCHC (31.0-37.0) g/dL Lymphocytes # (1.0-4.8) k/uL Glucose 150 H (74-99) mg/dL POC Glucose (mg/dL) 216 H 202 H (70-110) mg/dL Total Protein 6.1 L (6.3-8.2) g/dL Albumin 3.3 L (3.5-5.0) g/dL Microbiology - Last 24 Hours (Table) 11/08/23 12:48 Gram Stain - Preliminary Foot - Left Assessment and Plan Assessment: 1. Left great toe amputation wound status post excisional debridement and skin substitute placement 2. Left great toe wound infection requiring IV antibiotics 3. Gait disturbance secondary to left foot pain and history of polio 4. History of polio Plan: 1. Infectious disease consulted, continue with antibiotic recommendations 2. Deep tissue cultures ordered, currently pending 3. Consult to physical therapy and Occupational Therapy for gait disturbance secondary to left foot pain/great toe amputation and history of polio 4. Consult to case management for subacute rehab placement 5. Heel walk only on left foot 6. Do not change dressing to left foot, only change Kerlix if dressing becomes saturated. Patient has skin substitute in place. 7. PICC line placed The impression and plan of care has been dictated as directed. I performed a history and examination of this patient, discussed the same with the dictator. I agree with the dictator's note ,documented as a scribe. Any additional findings or plans will be noted.
[2023-11-09 16:59] LABS: Glucose,Whole Blood 133 mg/dL (70-110)
--- NOTE | 2023-11-09 19:08 | P.HPIM ---
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 Tolerated surgery w ell. Maintained on cefepime and vancomycin via PICC line as per ID. Afebrile, normal WBC, CRP less than 0.5. Renal function stable. Blood sugars better controlled this morning. Pain controlled. Weaning off oxygen, maintaining O2 sats in the high 90s on 3L NC. Review of Systems ROS Statement: Those systems with pertinent positive or pertinent negative responses have been documented in the HPI. ROS Other: All systems not noted in ROS Statement are negative. Past Medical History Past Medical History: Diabetes Mellitus, Hyperlipidemia, Hypertension Additional Past Medical History / Comment(s): post polio syndrome, LE EDEMA History of Any Multi-Drug Resistant Organisms: MRSA Date of last positivie culture/infection: 08/29/23 MDRO Source:: Toe Left 1st Past Surgical History: Appendectomy, Hysterectomy, Tonsillectomy Additional Past Surgical History / Comment(s): LEFT GREAT TOE AMPUTATED. LEFT LEG REVASCULARIZATION Past Anesthesia/Blood Transfusion Reactions: No Reported Reaction Past Psychological History: No Psychological Hx Reported Smoking Status: Never smoker Past Alcohol Use History: Occasional Past Drug Use History: None Reported - Past Family History Mother Family Medical History: Congestive Heart Failure (CHF) Medications and Allergies Home Medications Medication Instructions Recorded Confirmed Type Acetaminophen Tab [Tylenol] 1,500 mg PO Q4H PRN 07/22/23 11/08/23 History Escitalopram [Lexapro] 30 mg PO QAM 07/22/23 11/08/23 History Glimepiride [Amaryl] 2 mg PO BID 07/22/23 11/08/23 History Omeprazole 20 mg PO QAM 07/22/23 11/08/23 History Oxybutynin Chloride [oxyBUTYnin 10 mg PO QAM 07/22/23 11/08/23 History chloride ER] Rosuvastatin Calcium 5 mg PO DAILY 07/22/23 11/08/23 History sitaGLIPtin [Januvia] 100 mg PO DAILY 07/22/23 11/08/23 History Clopidogrel Bisulfate [Clopidogrel] 75 mg PO DAILY 08/29/23 11/07/23 History Losartan/Hydrochlorothiazide 1 tab PO QAM 08/29/23 11/08/23 History [Losartan-Hctz 100-25 mg Tab] INSULIN ASPART (NovoLOG) [NovoLOG 0 unit SQ ACHS each 09/01/23 11/08/23 Rx (formulary)] Gabapentin [Neurontin] 400 mg PO BID #4 cap 09/02/23 11/08/23 Rx HYDROcodone/APAP 7.5-325MG [[place] 1 each PO Q6HR PRN 3 Days #12 tab 09/02/23 11/08/23 Rx 7.5-325] Nf-Bumex Dose Unk 1 mg PO DIRECTED 11/07/23 11/08/23 History Nf-Spironolactone Dose Unk 12.5 mg PO DIRECTED 11/07/23 11/08/23 History Acetaminophen [Tylenol Extra 1,000 mg PO Q6HR PRN 11/08/23 11/08/23 History Strength] Amoxicillin/Potassium Clav 1 each PO 11/08/23 History [Amox-Clav 875-125 mg Tablet] Empagliflozin [Jardiance] 10 mg PO DAILY 11/08/23 11/08/23 History Loratadine [Claritin] 5 mg PO DAILY 11/08/23 11/08/23 History Saliva Stimulant Comb. No.3 1 spray MUCOUS MEM BID PRN 11/08/23 11/08/23 History [Biotene Moisturizing Mouth] Sennosides/Docusate Sodium [Senna 1 each PO BID 11/08/23 11/08/23 History Plus 8.6-50 mg Softgel] Spironolactone [Aldactone] 12.5 mg PO DAILY 11/08/23 11/08/23 History guaiFENesin [Diabetic Tussin Ex] 10 mg PO Q4HR PRN 11/08/23 11/08/23 History Allergies Allergy/AdvReac Type Severity Reaction Status Date / Time No Known Allergies Allergy Verified 11/07/23 11:17 Physical Exam Vitals: Vital Signs Temp Pulse Pulse Resp BP BP Pulse Ox 11/09/23 07:07 97.6 F 59 L 19 124/55 100 11/09/23 07:02 98.7 F 70 18 157/87 95 11/09/23 01:26 97.8 F 65 16 126/59 94 L 11/08/23 19:30 98.3 F 63 16 133/56 97 11/08/23 17:05 66 145/76 96 11/08/23 16:35 64 147/70 93 L 11/08/23 16:20 67 147/71 96 11/08/23 16:05 73 145/83 92 L 11/08/23 15:50 98.3 F 81 17 186/82 92 L 11/08/23 15:15 71 16 132/70 97 11/08/23 14:45 68 16 131/63 98 Intake and Output 11/08/23 11/09/23 11/09/23 22:59 06:59 14:59 Intake Total 500 Balance 500 Intake: IV 500 Other: Voiding Method Toilet # Voids 1 Weight 97.069 kg GENERAL: The patient is sitting up in bed, alert and oriented x3, no acute distress. Well developed, well nourished. HEENT: Normocephalic, atraumatic ,pupils are round and equally reacting to light. No scleral icterus. No conjunctival pallor.Neck supple,no JVD. CARDIOVASCULAR: S1 and S2 present. No murmurs, rubs, or gallops. PULMONARY: Unlabored, equal air entry, chest is clear to auscultation, no whee zing or crackles. ABDOMEN: Soft, nontender, nondistended, normoactive bowel sounds. No palpable organomegaly. EXTREMITIES: Left foot dressing clean dry and intact, no cyanosis, clubbing, or pedal edema. NEUROLOGICAL: Gross neurological examination did not reveal any focal deficits. SKIN: Warm and dry, no rashes. Results CBC & Chem 7: 11/08/23 16:47 11/09/23 04:24 Labs: Abnormal Lab Results - Last 24 Hours (Table) 11/08/23 11/08/23 11/08/23 Range/Units 15:36 16:47 16:47 MCHC 30.6 L (31.0-37.0) g/dL Lymphocytes # 0.7 L (1.0-4.8) k/uL Glucose 150 H (74-99) mg/dL POC Glucose (mg/dL) 117 H (70-110) mg/dL Total Protein 6.1 L (6.3-8.2) g/dL Albumin 3.3 L (3.5-5.0) g/dL 11/08/23 11/09/23 11/09/23 Range/Units 19:48 06:18 11:52 MCHC (31.0-37.0) g/dL Lymphocytes # (1.0-4.8) k/uL Glucose (74-99) mg/dL POC Glucose (mg/dL) 216 H 202 H 134 H (70-110) mg/dL Total Protein (6.3-8.2) g/dL Albumin (3.5-5.0) g/dL Microbiology - Last 24 Hours (Table) 11/08/23 12:48 Gram Stain - Preliminary Foot - Left Thrombosis Risk Factor Assmnt - Choose All That Apply Each Factor Represents 1 point: History of prior major surgery (<1month), Minor surgery planned Other Risk Factors: Yes Each Risk Factor Represents 3 Points: Age 75 years or older Other congenital or acquired thrombophilia - If yes, enter type in comment: No Thrombosis Risk Factor Assessment Total Risk Factor Score: 5 Thrombosis Risk Factor Assessment Level: High Risk Assessment and Plan Assessment: Left great toe amputation wound excisional debridement, deep wound culture and skin substitute placement. Recent left great toe infection with osteomyelitis chronic status post amputation of the left great toe with wound VAC placement patient continues on IV vancomycin due to history of MRSA and surgical cultures are showing MRSA08/27.Wound cultures of 10/24/2023 reported MRSA, Pseudomonas aeruginosa and Proteus Mirabellis. History of diabetes mellitus type 2 continue with accuchecks ACHS History of polio and postpolio syndrome Gait dysfunction secondary to the above Hx of hyperlipidemia maintained on statin therapy Plan: Continue on current medication regimen ,monitoring and symptomatic treatment. aggressive pulmonary toileting with incentive spirometer ordered. Aerobic and anaerobic wound cultures, blood cultures pending. Antibiotics as per infectious disease. CM,PT/OT consult in place. Patient will require subacute rehab at discharge for IV antibiotic therapy. Maintain tight blood sugar control with close monitoring of Accu-Cheks. Wound care/pain management as per vascular surgery. Protonix in place for GI prophylaxis. Protein supplements ordered .close monitoring of renal function with repeat labs ordered for a.m. The impression and plan of care has been dictated as directed. : I performed a history and examination of this patient, discussed the same with the dictator. I agree with the dictator's note ,documented as a scribe. Any additional findings or plans will be noted.
[2023-11-09 20:42] LABS: Glucose,Whole Blood 201 mg/dL (70-110)
[2023-11-10] MEDS: VANCOMYCIN TROUGH DUE 1 EACH MISC MISCELLANE ONE (04:41)
[2023-11-10 04:53] LABS: African American GFR (CKD) >90 (>60 ml/min/1.73 sqM); Non-African American GFR(CKD) 82 (>60 ml/min/1.73 sqM)
[2023-11-10 05:54] LABS: Glucose,Whole Blood 140 mg/dL (70-110)
[2023-11-10 08:56] LABS: Basophils # (A) 0.01 X 10*3/uL (0.00-0.10); Basophils % (A) 0.1 %; Eosinophils # (A) 0.23 X 10*3/uL (0.04-0.35); Eosinophils % (A) 2.8 %; HGB 11.8 g/dL (12.0-15.0); Lymphocytes # (A) 2.29 X 10*3/uL (0.90-5.00); Lymphocytes % (A) 27.7 %; MCH 28.4 pg (27.0-32.0); MCHC 31.1 g/dL (32.0-37.0); MCV 91.3 FL (80.0-97.0); Mean Platelet Volume 10.8 FL (9.5-12.2); Monocytes # (A) 0.77 X 10*3/uL (0.20-1.00); Monocytes % (A) 9.3 %; NRBC Per 100 WBC 0 X 10*3/uL (0.00-0.01); Neutrophils # (A) 4.94 X 10*3/uL (1.80-7.70); Neutrophils % (A) 59.7 %; Platelet Count 193 X 10*3/uL (140-440); RBC 4.16 X 10*6/uL (4.10-5.20); RDW 12.5 % (11.5-14.5); WBC 8.27 X 10*3/uL (4.50-10.00)
[2023-11-10 09:01] LABS: Blood Urea Nitrogen 19.6 mg/dL (9.0-27.0); Calcium 9.2 mg/dL (8.7-10.3); Carbon Dioxide 27.6 mmol/L (21.6-31.8); Chloride 104 mmol/L (96-109); Glucose 175 mg/dL (70-110); Potassium 4.5 mmol/L (3.5-5.5); Sodium 139 mmol/L (135-145)
[2023-11-10] MEDS: MICONAZOLE NITRATE 2% CREAM 14 GM TUBE TOPICAL SCH (09:58)
[2023-11-10 11:59] LABS: Glucose,Whole Blood 117 mg/dL (70-110)
--- NOTE | 2023-11-10 12:54 | P.PN ---
Subjective Progress Note Date: 11/10/23 Principal diagnosis: Left great toe amputation site infection Patient is seen and examined today as a follow-up. She is sitting up in the bedside chair. Pain has been well-controlled. Still having some pressure at the amputation site. Dressing is clean dry and intact. Physical therapy worked with patient yesterday as well as Occupational Therapy. She remains afebrile. Dates that she feels that she has a yeast infection secondary to the antibiotics, and was recently on Diflucan. Objective - Vital Signs Vital signs: Vital Signs Temp 98.0 F 11/10/23 07:31 Pulse 62 11/10/23 07:31 Resp 18 11/10/23 07:31 BP 170/75 11/10/23 07:31 Pulse Ox 96 11/10/23 07:31 FiO2 Intake & Output 11/09/23 11/10/23 11/10/23 18:59 06:59 18:59 Other: Voiding Method Toilet Toilet # Voids 2 1 - Exam General appearance: The patient is alert, oriented, appears in no acute distress. HET: Head is normocephalic and atraumatic. Pupils are equal and reactive. Neck: Supple. Abdomen: Soft, nondistended. Extremities: Left foot with dressing clean dry and intact. Toes pink and warm with good capillary refill. Neurological: No focal deficits. Alert and oriented. - Labs CBC & Chem 7: 11/10/23 03:09 11/10/23 03:09 Labs: Abnormal Lab Results - Last 24 Hours (Table) 11/09/23 11/09/23 11/09/23 Range/Units 11:52 16:58 20:41 Hgb (12.0-15.0) g/dL MCHC (32.0-37.0) g/dL BUN/Creatinine Ratio (12.00-20.00) Ratio Glucose (70-110) mg/dL POC Glucose (mg/dL) 134 H 133 H 201 H (70-110) mg/dL 11/10/23 11/10/23 11/10/23 Range/Units 03:09 03:09 05:52 Hgb 11.8 L (12.0-15.0) g/dL MCHC 31.1 L (32.0-37.0) g/dL BUN/Creatinine Ratio 28.00 H (12.00-20.00) Ratio Glucose 175 H (70-110) mg/dL POC Glucose (mg/dL) 140 H (70-110) mg/dL Microbiology - Last 24 Hours (Table) 11/08/23 16:47 Blood Culture - Preliminary Blood Assessment and Plan Assessment: 1. Left great toe amputation wound status post excisional debridement and skin substitute placement 2. Left great toe wound infection requiring IV antibiotics 3. Gait disturbance secondary to left foot pain and history of polio 4. History of polio Plan: 1. Infectious disease consulted, continue with antibiotic recommendations 2. Deep tissue cultures ordered, currently pending 3. Consult to physical therapy and Occupational Therapy for gait disturbance secondary to left foot pain/great toe amputation and history of polio 4. Consult to case management for subacute rehab placement 5. Heel walk only on left foot 6. Do not change dressing to left foot, only change Kerlix if dressing becomes saturated. Patient has skin substitute in place. 7. PICC line placed 8. Postop shoe ordered Anticipate discharge to [facility] possibly tomorrow. The impression and plan of care has been dictated as directed. I performed a history and examination of this patient, discussed the same with the dictator. I agree with the dictator's note ,documented as a scribe. Any additional findings or plans will be noted.
--- NOTE | 2023-11-10 16:13 | P.PN ---
Subjective Progress Note Date: 11/09/23 Principal diagnosis: Reason for follow-up is left foot diabetic foot ulcer osteomyelitis MRSA Patient is a 77-year-old female with a past medical significant for diabetes mellitus hypertension hyperlipidemia patient did have a history of left big toe gangrene/diabetic foot infection requiring left big toe amputation With subsequent nonhealing ulcer wound with recent outpatient culture positive for MRSA Pseudomonas and Proteus, admitted to the hospital for excisional debridement of the wound and skin substitute placement On today's evaluation that is 11/09/2023, patient has been afebrile, patient is breathing comfortably and is currently on room air, patient denies having any significant cough no chest pain shortness of breath, patient denies nausea vomiting or diarrhea and no abdominal pain patient denies any worsening pain to the left foot wound area Patient did have a creatinine 0.68 no CBC was done today Objective - Vital Signs Vital signs: Vital Signs Temp 97.6 F 11/09/23 07:07 Pulse 59 L 11/09/23 07:07 Resp 19 11/09/23 07:07 BP 124/55 11/09/23 07:07 Pulse Ox 100 11/09/23 07:07 FiO2 Intake & Output 11/08/23 11/09/23 11/09/23 18:59 06:59 18:59 Intake Total 750 Output Total 2 Balance 748 Weight 97.069 kg Intake: IV 750 Output: Estimated Blood Loss 2 Other: Voiding Method Toilet # Voids 1 - Exam GENERAL DESCRIPTION: An elderly female jose a lying in bed in no distress RESPIRATORY SYSTEM: Unlabored breathing , decreased breath sounds at bases HEART: S1 S2 regular rate and rhythm , ABDOMEN: Soft , no tenderness EXTREMITIES: Left foot is currently dressed no drainage on the dressing - Labs CBC & Chem 7: 11/10/23 03:09 11/10/23 03:09 Labs: Abnormal Lab Results - Last 24 Hours (Table) 11/08/23 11/08/23 11/08/23 Range/Units 15:36 16:47 16:47 MCHC 30.6 L (31.0-37.0) g/dL Lymphocytes # 0.7 L (1.0-4.8) k/uL Glucose 150 H (74-99) mg/dL POC Glucose (mg/dL) 117 H (70-110) mg/dL Total Protein 6.1 L (6.3-8.2) g/dL Albumin 3.3 L (3.5-5.0) g/dL 11/08/23 11/09/23 11/09/23 Range/Units 19:48 06:18 11:52 MCHC (31.0-37.0) g/dL Lymphocytes # (1.0-4.8) k/uL Glucose (74-99) mg/dL POC Glucose (mg/dL) 216 H 202 H 134 H (70-110) mg/dL Total Protein (6.3-8.2) g/dL Albumin (3.5-5.0) g/dL Microbiology - Last 24 Hours (Table) 11/08/23 12:48 Gram Stain - Preliminary Foot - Left Assessment and Plan (1) Foot osteomyelitis, left Current Visit: Yes Status: Acute Code(s): M86.9 - OSTEOMYELITIS, UNSPECIFIED SNOMED Code(s): 9231408328515931 (2) MRSA (methicillin resistant staph aureus) culture positive Current Visit: Yes Status: Acute Code(s): Z22.322 - CARRIER OR SUSPECTED CARRIER OF METHICILLIN RESIS STAPH SNOMED Code(s): 662441648 (3) Diabetic infection of left foot Current Visit: No Status: Acute Code(s): E11.628 - TYPE 2 DIABETES MELLITUS WITH OTHER SKIN COMPLICATIONS; L08.9 - LOCAL INFECTION OF THE SKIN AND SUBCUTANEOUS TISSUE, UNSP SNOMED Code(s): 17654889 Plan: 1patient with a left diabetic foot infection and nonhealing wound in this patient who did have a history of left big toe gangrene status post amputation previous culture positive for MRSA for the patient completed a course of vancomycin with recent worsening and repeat culture now growing MRSA Pseudomonas and Proteus Mirabelis in this patient who status post sharp excisional debridement and deep culture completed on 11/08/2023 2-patient to continue with vancomycin pharmacy to dose and cefepime 2 g every 8 hours Dictation was produced using [employer] dictation software. please excuse any grammatical, word or spelling errors. Time with Patient: Less than 30
--- NOTE | 2023-11-10 16:14 | P.PN ---
Subjective Progress Note Date: 11/10/23 Principal diagnosis: Reason for follow-up is left foot diabetic foot ulcer osteomyelitis MRSA Patient is a 77-year-old female with a past medical significant for diabetes mellitus hypertension hyperlipidemia patient did have a history of left big toe gangrene/diabetic foot infection requiring left big toe amputation With subsequent nonhealing ulcer wound with recent outpatient culture positive for MRSA Pseudomonas and Proteus, admitted to the hospital for excisional debridement of the wound and skin substitute placement On today's evaluation that is 11/10/2023,the patient denies any fever or any chills, patient is breathing comfortably on room air, the patient denies chest pain shortness of breath and no significant cough, patient denies abdominal pain, no nausea vomiting or diarrhea., Patient pain to the left foot is currently controlled. Patient white count of 8.27, creatinine 0.7 local culture growing gram-negative bacilli blood culture negative Objective - Vital Signs Vital signs: Vital Signs Temp 98.0 F 11/10/23 07:31 Pulse 62 11/10/23 07:31 Resp 18 11/10/23 07:31 BP 170/75 11/10/23 07:31 Pulse Ox 96 11/10/23 07:31 FiO2 Intake & Output 11/09/23 11/10/23 11/10/23 18:59 06:59 18:59 Other: Voiding Method Toilet Toilet # Voids 2 1 - Exam GENERAL DESCRIPTION: An elderly female jose a lying in bed in no distress RESPIRATORY SYSTEM: Unlabored breathing , decreased breath sounds at bases HEART: S1 S2 regular rate and rhythm , ABDOMEN: Soft , no tenderness EXTREMITIES: Left foot is currently dressed no drainage on the dressing - Labs CBC & Chem 7: 11/10/23 03:09 11/10/23 03:09 Labs: Abnormal Lab Results - Last 24 Hours (Table) 11/09/23 11/09/23 11/10/23 Range/Units 16:58 20:41 03:09 Hgb 11.8 L (12.0-15.0) g/dL MCHC 31.1 L (32.0-37.0) g/dL BUN/Creatinine Ratio (12.00-20.00) Ratio Glucose (70-110) mg/dL POC Glucose (mg/dL) 133 H 201 H (70-110) mg/dL 11/10/23 11/10/23 11/10/23 Range/Units 03:09 05:52 11:58 Hgb (12.0-15.0) g/dL MCHC (32.0-37.0) g/dL BUN/Creatinine Ratio 28.00 H (12.00-20.00) Ratio Glucose 175 H (70-110) mg/dL POC Glucose (mg/dL) 140 H 117 H (70-110) mg/dL Microbiology - Last 24 Hours (Table) 11/08/23 12:48 Gram Stain - Preliminary Foot - Left Wound Culture - Preliminary Gram Neg Bacilli Gram Neg Bacilli#2 11/08/23 16:47 Blood Culture - Preliminary Blood Assessment and Plan (1) Foot osteomyelitis, left Current Visit: Yes Status: Acute Code(s): M86.9 - OSTEOMYELITIS, UNSPECIFIED SNOMED Code(s): 2612201718500024 (2) MRSA (methicillin resistant staph aureus) culture positive Current Visit: Yes Status: Acute Code(s): Z22.322 - CARRIER OR SUSPECTED CARRIER OF METHICILLIN RESIS STAPH SNOMED Code(s): 269226842 (3) Diabetic infection of left foot Current Visit: No Status: Acute Code(s): E11.628 - TYPE 2 DIABETES MELLITUS WITH OTHER SKIN COMPLICATIONS; L08.9 - LOCAL INFECTION OF THE SKIN AND S UBCUTANEOUS TISSUE, UNSP SNOMED Code(s): 99223936 Plan: 1patient with a left diabetic foot infection and nonhealing wound in this patient who did have a history of left big toe gangrene status post amputation previous culture positive for MRSA for the patient completed a course of vancomycin with recent worsening and repeat culture now growing MRSA Pseudomonas and Proteus Mirabelis in this patient who status post sharp excisional debride ment and deep culture completed on 11/08/2023 2-patient local culture currently growing gram-negative bacilli with ID sensitivities pending keeping in mind her recent culture positive for MRSA and Pseudomonas patient is covered with the vancomycin cefepime plan is for a 6-week course of antibiotic and close outpatient follow-up Dictation was produced using [employer] software. please excuse any grammatical, word or spelling errors. Time with Patient: Less than 30
[2023-11-10 16:40] LABS: Glucose,Whole Blood 178 mg/dL (70-110)
[2023-11-10 19:29] LABS: Glucose,Whole Blood 111 mg/dL (70-110)
[2023-11-10] MEDS: VANCOMYCIN 1,500 MG in SODIUM CHLORIDE 0.9% 500 ML 500 ML IVPB SCH (21:02)
--- NOTE | 2023-11-10 22:51 | P.PN ---
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 Tolerated surgery well. Maintained on cefepime and vancomycin via PICC line as per ID. Afebrile, normal WBC, CRP less than 0.5. Renal function stable. Blood sugars better controlled this morning. Pain controlled. Weaning off oxygen, maintaining O2 sats in the high 90s on 3L NC. 11/10/2023 Patient evaluated today status post debridement and skin substitute placement of the left great toe amputation site. Has PICC line in place. Wound culture showing gram negative bacilli. Plans for 6 weeks of outpatient antibiotics. Patient pending post op shoe. Will be discharge to rehab. Review of Systems Constitutional: Denied any fatigue denied any fever. Cardio vascular: denied any chest pain, palpitations Gastrointestinal: denied any nausea, vomiting, diarrhea Pulmonary: Denied any shortness of breath cough Neurologic denied any new focal deficits All inpatient medications were reviewed and appropriate changes in these medications as dictated in the interval history and assessment and plan. PHYSICAL EXAMINATION: GENERAL: The patient is alert and oriented x3, not in any acute distress. Well developed, well nourished. HEENT: Pupils are round and equally reacting to light. EOMI. No scleral icterus. No conjunctival pallor. Normocephalic, atraumatic. No pharyngeal erythema. No thyromegaly. CARDIOVASCULAR: S1 and S2 present. No murmurs, rubs, or gallops. PULMONARY: Chest is clear to auscultation, no wheezing or crackles. ABDOMEN: Soft, nontender, nondistended, normoactive bowel sounds. No palpable organomegaly. MUSCULOSKELETAL: No joint swelling or deformity. EXTREMITIES: No cyanosis, clubbing, or pedal edema. Dressing intact to the left foot. NEUROLOGICAL: Gross neurological examination did not reveal any focal deficits. SKIN: No rashes. Assessment Left great toe amputation wound excisional debridement, deep wound culture and skin substitute placement postoperative day # Recent left great toe infection with osteomyelitis chronic status post amputation of the left great toe with wound VAC placement patient continues on IV vancomycin due to history of MRSA and surgical cultures are showing MRSA 08/27.Wound cultures of 10/24/2023 reported MRSA, Pseudomonas aeruginosa and Proteus Mirabellis. History of diabetes mellitus type 2 continue with accuchecks ACHS History of polio and postpolio syndrome Gait dysfunction secondary to the above Hx of hyperlipidemia maintained on statin therapy GI prophylaxis DVT prophylaxis Plan Continue IV vancomycin and IV cefepime pending final wound cultures ID following closely PICC line in place Continue current pain regimen and supportive care Pending postop shoe Repeat BMP in the AM Subacute rehab on discharge possibly in the next 24 hours The impression and plan of care has been dictated by Tamar Tolentino, Nurse Practitioner as directed. Dr. Tatiana MD I have performed a history and physical examination and medical decision making of this patient, discussed the same with the dictator, and agree with the dictators assessment and plan as written, documented as a scribe. Based on total visit time, I have performed more than 50% of this visit. Objective - Vital Signs Vital signs: Vital Signs Temp 97.9 F 11/10/23 19:22 Pulse 60 11/10/23 19:22 Resp 14 11/10/23 19:22 BP 135/57 11/10/23 19:22 Pulse Ox 96 11/10/23 19:22 FiO2 Intake & Output 11/10/23 11/10/23 11/11/23 06:59 18:59 06:59 Other: Voiding Method Toilet # Voids 1 2 - Labs CBC & Chem 7: 11/10/23 03:09 11/10/23 03:09 Labs: Abnormal Lab Results - Last 24 Hours (Table) 11/10/23 11/10/23 11/10/23 Range/Units 03:09 03:09 05:52 Hgb 11.8 L (12.0-15.0) g/dL MCHC 31.1 L (32.0-37.0) g/dL BUN/Creatinine Ratio 28.00 H (12.00-20.00) Ratio Glucose 175 H (70-110) mg/dL POC Glucose (mg/dL) 140 H (70-110) mg/dL 11/10/23 11/10/23 11/10/23 Range/Units 11:58 16:34 19:28 Hgb (12.0-15.0) g/dL MCHC (32.0-37.0) g/dL BUN/Creatinine Ratio (12.00-20.00) Ratio Glucose (70-110) mg/dL POC Glucose (mg/dL) 117 H 178 H 111 H (70-110) mg/dL Microbiology - Last 24 Hours (Table) 11/08/23 12:48 Anaerobic Culture - Preliminary Foot - Left 11/08/23 12:48 Gram Stain - Preliminary Foot - Left Wound Culture - Preliminary Gram Neg Bacilli Gram Neg Bacilli#2 11/08/23 16:47 Blood Culture - Preliminary Blood Assessment and Plan Time with Patient: Less than 30
[2023-11-11 05:37] LABS: Glucose,Whole Blood 156 mg/dL (70-110)
[2023-11-11 06:05] LABS: African American GFR (CKD) >90 (>60 ml/min/1.73 sqM); Anion Gap 5 mmol/L; Blood Urea Nitrogen 21 mg/dL (7-17); Calcium 9.2 mg/dL (8.4-10.2); Carbon Dioxide 26 mmol/L (22-30); Chloride 108 mmol/L (98-107); Glucose 157 mg/dL (74-99); Non-African American GFR(CKD) 84 (>60 ml/min/1.73 sqM); Potassium 4.6 mmol/L (3.5-5.1); Sodium 139 mmol/L (137-145)
[2023-11-11 08:21] VITALS: BP 154/71; PULSE 60; RESP 18; TEMP 98.3
--- NOTE | 2023-11-11 10:21 | P.PN ---
Subjective Progress Note Date: 11/11/23 Principal diagnosis: Left great toe amputation site infection Patient is seen and examined today as a follow-up. She is sitting up in the bedside chair. Pain has been well-controlled, but states using Stella as ordered. Dressing is clean dry and intact. She has been afebrile. Blood cultures are negative to date. Wound culture with gram-negative bacilli, Pseudomonas aeruginosa. Currently on cefepime and vancomycin, with infectious disease following. Objective - Vital Signs Vital signs: Vital Signs Temp 98.3 F 11/11/23 07:30 Pulse 60 11/11/23 07:30 Resp 18 11/11/23 07:30 BP 154/71 11/11/23 07:30 Pulse Ox 98 11/11/23 07:30 FiO2 Intake & Output 11/10/23 11/11/23 11/11/23 18:59 06:59 18:59 Other: # Voids 2 2 - Exam General appearance: The patient is alert, oriented, appears in no acute distress. HET: Head is normocephalic and atraumatic. Pupils are equal and reactive. Neck: Supple. Abdomen: Soft, nondistended. Extremities: Left foot with dressing clean dry and intact. Toes pink and warm with good capillary refill. Neurological: No focal deficits. Alert and oriented. - Labs CBC & Chem 7: 11/10/23 03:09 11/11/23 05:30 Labs: Abnormal Lab Results - Last 24 Hours (Table) 11/10/23 11/10/23 11/10/23 Range/Units 11:58 16:34 19:28 Chloride (98-107) mmol/L BUN (7-17) mg/dL Glucose (74-99) mg/dL POC Glucose (mg/dL) 117 H 178 H 111 H (70-110) mg/dL 11/11/23 11/11/23 Range/Units 05:30 05:35 Chloride 108 H (98-107) mmol/L BUN 21 H (7-17) mg/dL Glucose 157 H (74-99) mg/dL POC Glucose (mg/dL) 156 H (70-110) mg/dL Microbiology - Last 24 Hours (Table) 11/08/23 12:48 Gram Stain - Preliminary Foot - Left Wound Culture - Preliminary Gram Neg Bacilli Pseudomonas aeruginosa 11/08/23 16:47 Blood Culture - Preliminary Blood 11/08/23 12:48 Anaerobic Culture - Preliminary Foot - Left Assessment and Plan Assessment: 1. Left great toe amputation wound status post excisional debridement and skin substitute placement 2. Left great toe wound infection requiring IV antibiotics 3. Gait disturbance secondary to left foot pain and history of polio 4. History of polio Plan: 1. Infectious disease consulted, continue with antibiotic recommendations 2. Deep tissue cultures ordered, reporting gram-negative bacilli, Pseudomonas aeruginosa 3. Consult to physical therapy and Occupational Therapy for gait disturbance secondary to left foot pain/great toe amputation and history of polio 4. Consult to case management for subacute rehab placement 5. Heel walk only on left foot 6. Do not change dressing to left foot, only change Kerlix if dressing becomes saturated. Patient has skin substitute in place. 7. PICC line placed 8. Postop shoe ordered 9. Patient is cleared from vascular surgery for discharge. We will sign off at this time. She is to follow-up with Dr. Enrique next week Tuesday, appointment is scheduled. The impression and plan of care has been dictated as directed. Dr. Enrique I performed a history and examination of this patient, discussed the same with the dictator. I agree with the dictator's note ,documented as a scribe. Any additional findings or plans will be noted.
[2023-11-11 11:39] LABS: Glucose,Whole Blood 154 mg/dL (70-110)
--- NOTE | 2023-11-11 12:03 | P.DS ---
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 Tolerated surgery well. Maintained on cefepime and vancomycin via PICC line as per ID. Afebrile, normal WBC, CRP less than 0.5. Renal function stable. Blood sugars better controlled this morning. Pain controlled. Weaning off oxygen, maintaining O2 sats in the high 90s on 3L NC. 11/10/2023 Patient evaluated today status post debridement and skin substitute placement of the left great toe amputation site. Has PICC line in place. Wound culture showing gram negative bacilli. Plans for 6 weeks of outpatient antibiotics. Patient pending post op shoe. Will be discharge to rehab. Left great toe amputation wound excisional debridement, deep wound culture and skin substitute placement postoperative day # Recent left great toe infection with osteomyelitis chronic status post amputation of the left great toe with wound VAC placement patient continues on IV vancomycin due to history of MRSA and surgical cultures are showing MRSA 08/27.Wound cultures of 10/24/2023 reported MRSA, Pseudomonas aeruginosa and Proteus Mirabellis. History of diabetes mellitus type 2 continue with accuchecks ACHS History of polio and postpolio syndrome Gait dysfunction secondary to the above Hx of hyperlipidemia maintained on statin therapy GI prophylaxis DVT prophylaxis Plan Continue IV vancomycin and IV cefepime pending final wound cultures ID following closely PICC line in place Continue current pain regimen and supportive care Pending postop shoe Repeat BMP in the AM Subacute rehab on discharge possibly in the next 24 hours 11/11/2023; patient cleared by vascular surgery for discharge to rehab; patient discussed with ID via secure texting and patient is to discharge on IV vancomycin and cefepime for 6 weeks therapy Plan - Discharge Summary Discharge Rx Participant: No New Discharge Prescriptions: New Cefepime [Maxipime] 2 gm IVPB Q8HR each Vancomycin 1,500 mg IVPB Q16H each Continue Escitalopram [Lexapro] 30 mg PO QAM Rosuvastatin Calcium 5 mg PO DAILY Oxybutynin Chloride [oxyBUTYnin chloride ER] 10 mg PO QAM Acetaminophen Tab [Tylenol] 1,500 mg PO Q4H PRN PRN Reason: Pain Clopidogrel Bisulfate [Clopidogrel] 75 mg PO DAILY INSULIN ASPART (NovoLOG) [NovoLOG (formulary)] 0 unit SQ ACHS each Nf-Spironolactone Dose Unk 12.5 mg PO DIRECTED Sennosides/Docusate Sodium [Senna Plus 8.6-50 mg Softgel] 1 each PO BID Empagliflozin [Jardiance] 10 mg PO DAILY Saliva Stimulant Comb. No.3 [Biotene Moisturizing Mouth] 1 spray MUCOUS MEM BID PRN PRN Reason: Dry Mouth sitaGLIPtin [Januvia] 100 mg PO DAILY Glimepiride [Amaryl] 2 mg PO BID Omeprazole 20 mg PO QAM Losartan/Hydrochlorothiazide [Losartan-Hctz 100-25 mg Tab] 1 tab PO QAM Nf-Bumex Dose Unk 1 mg PO DIRECTED Spironolactone [Aldactone] 12.5 mg PO DAILY guaiFENesin [Diabetic Tussin Ex] 10 mg PO Q4HR PRN PRN Reason: Cough Loratadine [Claritin] 5 mg PO DAILY Acetaminophen [Tylenol Extra Strength] 1,000 mg PO Q6HR PRN PRN Reason: Moderate Pain (Scale 4 To 6) Gabapentin [Neurontin] 400 mg PO BID 3 Days #6 cap HYDROcodone/APAP 7.5-325MG [[place] 7.5-325] 1 each PO Q6HR PRN 3 Days #12 tab PRN Reason: Pain Discontinued Amoxicillin/Potassium Clav [Amox-Clav 875-125 mg Tablet] 1 each PO Discharge Medication List Acetaminophen Tab [Tylenol] 1,500 mg PO Q4H PRN 07/22/23 [History] Escitalopram [Lexapro] 30 mg PO QAM 07/22/23 [History] Glimepiride [Amaryl] 2 mg PO BID 07/22/23 [History] Omeprazole 20 mg PO QAM 07/22/23 [History] Oxybutynin Chloride [oxyBUTYnin chloride ER] 10 mg PO QAM 07/22/23 [History] Rosuvastatin Calcium 5 mg PO DAILY 07/22/23 [History] sitaGLIPtin [Januvia] 100 mg PO DAILY 07/22/23 [History] Clopidogrel Bisulfate [Clopidogrel] 75 mg PO DAILY 08/29/23 [History] Losartan/Hydrochlorothiazide [Losartan-Hctz 100-25 mg Tab] 1 tab PO QAM 08/29/23 [History] INSULIN ASPART (NovoLOG) [NovoLOG (formulary)] 0 unit SQ ACHS each 09/01/23 [Rx] Nf-Bumex Dose Unk 1 mg PO DIRECTED 11/07/23 [History] Nf-Spironolactone Dose Unk 12.5 mg PO DIRECTED 11/07/23 [History] Acetaminophen [Tylenol Extra Strength] 1,000 mg PO Q6HR PRN 11/08/23 [History] Empagliflozin [Jardiance] 10 mg PO DAILY 11/08/23 [History] Loratadine [Claritin] 5 mg PO DAILY 11/08/23 [History] Saliva Stimulant Comb. No.3 [Biotene Moisturizing Mouth] 1 spray MUCOUS MEM BID PRN 11/08/23 [History] Sennosides/Docusate Sodium [Senna Plus 8.6-50 mg Softgel] 1 each PO BID 11/08/23 [History] Spironolactone [Aldactone] 12.5 mg PO DAILY 11/08/23 [History] guaiFENesin [Diabetic Tussin Ex] 10 mg PO Q4HR PRN 11/08/23 [History] Gabapentin [Neurontin] 400 mg PO BID 3 Days #6 cap 11/10/23 [Rx] HYDROcodone/APAP 7.5-325MG [[place] 7.5-325] 1 each PO Q6HR PRN 3 Days #12 tab 11/10/23 [Rx] Cefepime [Maxipime] 2 gm IVPB Q8HR each 11/11/23 [Rx] Vancomycin 1,500 mg IVPB Q16H each 11/11/23 [Rx] Follow up Appointment(s)/Referral(s): Dm Enrique DO [STAFF PHYSICIAN] - 11/15/23 10:45 am Genie Rivera MD [STAFF PHYSICIAN] - 1 Week Ambulatory/Diagnostic Orders: Basic Metabolic Panel [LAB.AMB] Location: None Selected C Reactive Protein [LAB.AMB] Location: None Selected Complete Blood Count w/diff [LAB.AMB] Location: None Selected Patient Instructions/Handouts: How to Flush Your PICC (Peripherally Inserted Central Catheter) (ED), PICC (Peripherally Inserted Central Catheter) (DC) Activity/Diet/Wound Care/Special Instructions: ok to use picc line for antibiotics Care of puncture site: Do not use blood pressure cuffs, tourniquets on arm with PICC line. Do not force flushing of picc line. Clean top to picc line prior to accessing line every time with alcohol wipe to prevent infection. Flush line with saline after use and blood draws. if PICC line looks like it is coming out, tape down and contact Dr Rivera's office for further instructions. Do not remove line as it might be possible to save line. monitor for signs of infection ie: fever, rash, drainage around puncture site, swelling, pain contact doctor for further instructions. Do not get PICC line wet. Cover with saran wrap and tape to prevent dressing from getting wet/prevent infection of line. Do NOT change dressing to left great toe other than Kerlix if saturated, skin substitute is in place. Wear postop shoe when ambulating. Heel walk only on left foot. Discharge Disposition: TRANSFER TO SNF/ECF
--- NOTE | 2023-11-11 13:14 | P.PN ---
Subjective Progress Note Date: 11/11/23 Principal diagnosis: Reason for follow-up is left foot diabetic foot ulcer osteomyelitis MRSA Patient is a 77-year-old female with a past medical significant for diabetes mellitus hypertension hyperlipidemia patient did have a history of left big toe gangrene/diabetic foot infection requiring left big toe amputation With subsequent nonhealing ulcer wound with recent outpatient culture positive for MRSA Pseudomonas and Proteus, admitted to the hospital for excisional debridement of the wound and skin substitute placement On today's evaluation that is 11/11/2023,the patient remains to be afebrile, patient is on room air not requiring supplemental oxygen and denies any shortness of breath no chest pain or cough.Patient denies having any nausea or vomiting, no abdominal pain and no diarrhea has been complaining of throbbing pain to the left foot wound area seem to be slightly emotional today. Patient did have a creatinine of 0.69 no CBC was done today local culture with Pseudomonas and gram-negative with ID sensitivity pending Objective - Vital Signs Vital signs: Vital Signs Temp 98.3 F 11/11/23 07:30 Pulse 60 11/11/23 07:30 Resp 18 11/11/23 07:30 BP 154/71 11/11/23 07:30 Pulse Ox 98 11/11/23 07:30 FiO2 Intake & Output 11/10/23 11/11/23 11/11/23 18:59 06:59 18:59 Other: # Voids 2 2 - Exam GENERAL DESCRIPTION: An elderly female jose a lying in bed in no distress RESPIRATORY SYSTEM: Unlabored breathing , decreased breath sounds at bases HEART: S1 S2 regular rate and rhythm , ABDOMEN: Soft , no tenderness EXTREMITIES: Left foot is currently dressed no drainage on the dressing - Labs CBC & Chem 7: 11/10/23 03:09 11/11/23 05:30 Labs: Abnormal Lab Results - Last 24 Hours (Table) 11/10/23 11/10/23 11/11/23 Range/Units 16:34 19:28 05:30 Chloride 108 H (98-107) mmol/L BUN 21 H (7-17) mg/dL Glucose 157 H (74-99) mg/dL POC Glucose (mg/dL) 178 H 111 H (70-110) mg/dL 11/11/23 11/11/23 Range/Units 05:35 11:38 Chloride (98-107) mmol/L BUN (7-17) mg/dL Glucose (74-99) mg/dL POC Glucose (mg/dL) 156 H 154 H (70-110) mg/dL Microbiology - Last 24 Hours (Table) 11/08/23 12:48 Gram Stain - Preliminary Foot - Left Wound Culture - Preliminary Gram Neg Bacilli Pseudomonas aeruginosa 11/08/23 16:47 Blood Culture - Preliminary Blood 11/08/23 12:48 Anaerobic Culture - Preliminary Foot - Left Assessment and Plan (1) Foot osteomyelitis, left Current Visit: Yes Status: Acute Code(s): M86.9 - OSTEOMYELITIS, UNSPECIFIED SNOMED Code(s): 5264064380332187 (2) MRSA (methicillin resistant staph aureus) culture positive Current Visit: Yes Status: Acute Code(s): Z22.322 - CARRIER OR SUSPECTED CARRIER OF METHICILLIN RESIS STAPH SNOMED Code(s): 397218118 (3) Diabetic infection of left foot Current Visit: No Status: Acute Code(s): E11.628 - TYPE 2 DIABETES MELLITUS WITH OTHER SKIN COMPLICATIONS; L08.9 - LOCAL INFECTION OF THE SKIN AND SUBCUTANEOUS TISSUE, UNSP SNOMED Code(s): 08302059 Plan: 1patient with a left diabetic foot infection and nonhealing wound in this patient who did have a history of left big toe gangrene status post amputation previous culture positive for MRSA for the patient completed a course of vancomycin with recent worsening and repeat culture now growing MRSA Pseudomonas and Proteus Mirabelis in this patient who status post sharp excisional debridement and deep culture completed on 11/08/2023 2-patient local culture currently growing gram-negative bacilli with ID sens itivities pending and Pseudomonas which is sensitive to cefepime 3plan is for a 6-week course of IV vancomycin pharmacy to dose along with cefepime and oral Flagyl with weekly monitoring of CRP and sed rate and close outpatient follow-up Multiple question concern answered Dictation was produced using [employer] dictation software. please excuse any grammatical, word or spelling errors. Time with Patient: Less than 30
== END 2023-11-11 16:32 | DRG 465 ==
LOC: OR 05:55 → 4SSUR 12:52 → OR 13:28 → 4SSUR 13:28
PROVIDERS: ADMIT Family Medicine; ATTEND Family Medicine
PROC: 0JBR0ZZ Excision of Left Foot Subcutaneous Tissue and Fascia, Open Approach (ICD-10-PCS; 2023-11-08)
PROC: 0HRNXK3 Replacement of Left Foot Skin with Nonautologous Tissue Substitute, Full Thickness, External Approach (ICD-10-PCS; 2023-11-08)
PROC: B5181ZA Fluoroscopy of Superior Vena Cava using Low Osmolar Contrast, Guidance (ICD-10-PCS; 2023-11-08)
PROC: B548ZZA Ultrasonography of Superior Vena Cava, Guidance (ICD-10-PCS; 2023-11-08)
PROC: 02HV33Z Insertion of Infusion Device into Superior Vena Cava, Percutaneous Approach (ICD-10-PCS; principal; 2023-11-08 07:30)
DX: T87.44 Infection of amputation stump, left lower extremity (principal); L97.529 Non-pressure chronic ulcer of other part of left foot with unspecified severity; T81.89XA Other complications of procedures, not elsewhere classified, initial encounter; Y84.8 Other medical procedures as the cause of abnormal reaction of the patient, or of later complication, without mention of misadventure at the time of the procedure; B95.62 Methicillin resistant Staphylococcus aureus infection as the cause of diseases classified elsewhere; Z79.4 Long term (current) use of insulin; E78.5 Hyperlipidemia, unspecified; G14 Postpolio syndrome; E11.9 Type 2 diabetes mellitus without complications; I10 Essential (primary) hypertension; Z86.14 Personal history of Methicillin resistant Staphylococcus aureus infection; E11.621 Type 2 diabetes mellitus with foot ulcer; E11.628 Type 2 diabetes mellitus with other skin complications; Z79.02 Long term (current) use of antithrombotics/antiplatelets; Z79.84 Long term (current) use of oral hypoglycemic drugs; Z79.899 Other long term (current) drug therapy; Z82.49 Family history of ischemic heart disease and other diseases of the circulatory system; Y83.5 Amputation of limb(s) as the cause of abnormal reaction of the patient, or of later complication, without mention of misadventure at the time of the procedure; Z90.710 Acquired absence of both cervix and uterus
CPT/HCPCS: 36573; 80048; 80053; 80202; 82565; 85025; 85652; 86140; 87040; 87070; 87075; 87077; 87186; 87205

== ENCOUNTER 2023-11-21 08:18 | Day surgery (SDC) | payer MEDICARE ==
[2023-11-18 11:28] VITALS: BMI 34.5
[~2023-11-21 08:18] MED LIST changes: +MIDAZOLAM 2 MG/2 ML VIAL IV PRN
[2023-11-21] MEDS: LACTATED RINGERS 1,000 ML IV SCH (09:02)
[2023-11-21 09:09] VITALS: TEMP 97.6
[2023-11-21] MEDS: DEXAMETHASONE SOD PHOSPHATE 4 MG/ML 1 ML VIAL IV ONE (09:14)
[2023-11-21] MEDS: ONDANSETRON 4 MG/2 ML VIAL IVP ONE ×2 (09:14→11:54)
[2023-11-21 09:25] LABS: Glucose,Whole Blood 88 mg/dL (70-110)
[2023-11-21] MEDS ORDERED: fentaNYL (PF) 50 MCG/ML 2 ML AMP ONE (10:23)
[2023-11-21] MEDS ORDERED: KETAMINE HCL IN 0.9 % NACL 50 MG/5 ML SYRINGE ONE (10:23)
[2023-11-21] MEDS ORDERED: PROPOFOL 10 MG/ML 20 ML VIAL IV ONE (10:23)
[2023-11-21] MEDS ORDERED: MIDAZOLAM 2 MG/2 ML VIAL ONE (10:23)
[2023-11-21] MEDS: ceFAZolin 1,000 MG in SODIUM CHLORIDE 0.9% 1,000 ML IRRIGATION ONE (10:49)
[2023-11-21] MEDS: HYDROmorphone 0.5 MG/0.5 ML SYRINGE IVP PRN (11:11)
[2023-11-21 11:28] LABS: Glucose,Whole Blood 90 mg/dL (70-110)
[2023-11-21] MEDS: HYDROmorphone 0.5 MG/0.5 ML SYRINGE IVP ONE ×2 (11:42→11:54)
[2023-11-21] MEDS ORDERED: ONDANSETRON 4 MG/2 ML VIAL ONE (11:50)
--- NOTE | 2023-11-21 12:52 | P.OP ---
Date of Procedure: 11/21/23 Preoperative Diagnosis: Chronic left great toe amputation wound Postoperative Diagnosis: same Procedure(s) Performed: Excisional debridement left great toe amputation site with skin substitute placement Anesthesia: MAC Surgeon: Dm Enrique Estimated Blood Loss (ml): 0 Pathology: none sent Condition: stable Disposition: PACU Indications for Procedure: 77-year-old female with history of gangrene of the left great toe with previous amputation and chronic wound with previous excisional debridements and skin substitute placement presents back to the operating room for another debridement and skin substitute placement. Description of Procedure: After written and informed consent was obtained for the patient and all risk, benefits and complications were discussed the patient was brought to the operative suite and laid in the supine position. The area of the left foot was prepped and draped in usual sterile fashion after appropriate anesthetic was performed per the anesthesiologist. Timeout was performed prior to incision. Patient is on antibiotics currently chronically. Utilizing a curette and scalpel excisional debridement was performed at the great toe amputation site with fibrinous tissue and ischemic tissue removed down to the fascia. There was minimal bleeding noted throughout the debridement except for on the medial aspect. Once all ischemic tissue was removed and there was some mild bleeding tissue the area was copiously irrigated with antibiotic solution. The wound measured 6 x 2 x 0.5 cm. PuraPly AM as well as powder was then placed within the wound and the wound was bolstered with Adaptic, Steri-Strips. It was then dressed with 4 x 4's and Kerlix. Patient tolerated the procedure well and was sent to PACU for recovery. Plan - Discharge Summary Discharge Rx Participant: No New Discharge Prescriptions: No Action Escitalopram [Lexapro] 20 mg PO DAILY Rosuvastatin Calcium 5 mg PO DAILY Oxybutynin Chloride [oxyBUTYnin chloride ER] 10 mg PO DAILY Acetaminophen Tab [Tylenol] 1,500 mg PO Q4H PRN PRN Reason: Pain INSULIN ASPART (NovoLOG) [NovoLOG (formulary)] 0 unit SQ ACHS each Sennosides/Docusate Sodium [Senna Plus 8.6-50 mg Softgel] 1 each PO BID Empagliflozin [Jardiance] 10 mg PO DAILY Saliva Stimulant Comb. No.3 [Biotene Moisturizing Mouth] 1 spray PO BID PRN PRN Reason: Dry Mouth Cefepime [Maxipime] 2 gm IVPB Q8HR each Vancomycin 1,500 mg IVPB DAILY DULoxetine HCL [Cymbalta] 30 mg PO DAILY Na Phos,M-B/Na Phos,Di-Ba [Fleet Adult] 1 dose RECTAL DIRECTED PRN PRN Reason: Constipation Gabapentin 600 mg PO HS Clopidogrel Bisulfate [Clopidogrel] 75 mg PO DAILY sitaGLIPtin [Januvia] 100 mg PO DAILY Glimepiride [Amaryl] 2 mg PO BID Omeprazole 20 mg PO DAILY Losartan/Hydrochlorothiazide [Losartan-Hctz 100-25 mg Tab] 1 tab PO DAILY Spironolactone [Aldactone] 12.5 mg PO DAILY guaiFENesin [Diabetic Tussin Ex] 10 mg PO Q4HR PRN PRN Reason: Cough Loratadine [Claritin] 5 mg PO DAILY Acetaminophen [Tylenol Extra Strength] 1,000 mg PO Q6HR PRN PRN Reason: Pain Scale 4 to 6 Gabapentin [Neurontin] 400 mg PO BID 3 Days #6 cap HYDROcodone/APAP 7.5-325MG [[place] 7.5-325] 1 each PO Q6HR PRN 3 Days #12 tab PRN Reason: Pain metroNIDAZOLE [Flagyl] 500 mg PO TID #90 tab traMADol HCL 50 mg PO Q6H PRN PRN Reason: Pain ALPRAZolam [Xanax] 0.25 mg PO Q8H PRN PRN Reason: Anxiety bisacodyL [Dulcolax] 10 mg RECTAL Q24H PRN PRN Reason: Constipation Nystatin [Nystatin Oral Susp] 5 ml PO QID Magnesium Hydroxide [Milk of Magnesia] 30 ml PO Q48H PRN PRN Reason: Constipation Discharge Medication List Acetaminophen Tab [Tylenol] 1,500 mg PO Q4H PRN 07/22/23 [History] Escitalopram [Lexapro] 20 mg PO DAILY 07/22/23 [History] Glimepiride [Amaryl] 2 mg PO BID 07/22/23 [History] Omeprazole 20 mg PO DAILY 07/22/23 [History] Oxybutynin Chloride [oxyBUTYnin chloride ER] 10 mg PO DAILY 07/22/23 [History] Rosuvastatin Calcium 5 mg PO DAILY 07/22/23 [History] sitaGLIPtin [Januvia] 100 mg PO DAILY 07/22/23 [History] Losartan/Hydrochlorothiazide [Losartan-Hctz 100-25 mg Tab] 1 tab PO DAILY 08/29/23 [History] INSULIN ASPART (NovoLOG) [NovoLOG (formulary)] 0 unit SQ ACHS each 09/01/23 [Rx] Acetaminophen [Tylenol Extra Strength] 1,000 mg PO Q6HR PRN 11/08/23 [History] Empagliflozin [Jardiance] 10 mg PO DAILY 11/08/23 [History] Loratadine [Claritin] 5 mg PO DAILY 11/08/23 [History] Saliva Stimulant Comb. No.3 [Biotene Moisturizing Mouth] 1 spray PO BID PRN 11/08/23 [History] Sennosides/Docusate Sodium [Senna Plus 8.6-50 mg Softgel] 1 each PO BID 11/08/23 [History] Spironolactone [Aldactone] 12.5 mg PO DAILY 11/08/23 [History] guaiFENesin [Diabetic Tussin Ex] 10 mg PO Q4HR PRN 11/08/23 [History] Gabapentin [Neurontin] 400 mg PO BID 3 Days #6 cap 11/10/23 [Rx] HYDROcodone/APAP 7.5-325MG [[place] 7.5-325] 1 each PO Q6HR PRN 3 Days #12 tab 11/10/23 [Rx] Cefepime [Maxipime] 2 gm IVPB Q8HR each 11/11/23 [Rx] metroNIDAZOLE [Flagyl] 500 mg PO TID #90 tab 11/11/23 [Rx] ALPRAZolam [Xanax] 0.25 mg PO Q8H PRN 11/18/23 [History] DULoxetine HCL [Cymbalta] 30 mg PO DAILY 11/18/23 [History] Gabapentin 600 mg PO HS 11/18/23 [History] Magnesium Hydroxide [Milk of Magnesia] 30 ml PO Q48H PRN 11/18/23 [History] Na Phos,M-B/Na Phos,Di-Ba [Fleet Adult] 1 dose RECTAL DIRECTED PRN 11/18/23 [History] Nystatin [Nystatin Oral Susp] 5 ml PO QID 11/18/23 [History] Vancomycin 1,500 mg IVPB DAILY 11/18/23 [History] bisacodyL [Dulcolax] 10 mg RECTAL Q24H PRN 11/18/23 [History] traMADol HCL 50 mg PO Q6H PRN 11/18/23 [History] Clopidogrel Bisulfate [Clopidogrel] 75 mg PO DAILY 11/21/23 [History] Follow up Appointment(s)/Referral(s): Dm Enrique DO [STAFF PHYSICIAN] - 1 Week Activity/Diet/Wound Care/Special Instructions: heel touch only. Keep dressings in place. Ok to change dressing on top of Adaptic and steri strips. Do Not remove adaptic Discharge Disposition: HOME SELF-CARE
[2023-11-21 14:20] VITALS: BP 127/67; PULSE 65; RESP 20
== END 2023-11-21 13:56 ==
LOC: OR 08:18
PROVIDERS: ATTEND Surgery
DX: S91.302A Unspecified open wound, left foot, initial encounter (principal); I10 Essential (primary) hypertension; E78.5 Hyperlipidemia, unspecified; E11.9 Type 2 diabetes mellitus without complications; Z90.710 Acquired absence of both cervix and uterus; K21.9 Gastro-esophageal reflux disease without esophagitis; Z90.49 Acquired absence of other specified parts of digestive tract; Z90.89 Acquired absence of other organs; Z98.890 Other specified postprocedural states; Z79.899 Other long term (current) drug therapy
CPT/HCPCS: 15004; 15275; J2250; J1100; J2405; J0690; J3010; J2704; J1170

== ENCOUNTER 2024-01-31 14:50 | Day surgery (SDC) | payer MEDICARE ==
[2024-01-31 15:37] LABS: Glucose,Whole Blood 155 mg/dL (70-110)
[2024-01-31] MEDS: LACTATED RINGERS 1,000 ML IV SCH (15:49)
[2024-01-31] MEDS: ONDANSETRON 4 MG/2 ML VIAL IVP ONE (15:51)
[2024-01-31] MEDS: DEXAMETHASONE SOD PHOSPHATE 4 MG/ML 1 ML VIAL IV ONE (15:51)
[2024-01-31] MEDS ORDERED: ROPIVACAINE 5 MG/ML 30 ML VIAL ONE (17:10)
[2024-01-31] MEDS ORDERED: ePHEDrine 50 MG/ML 1 ML VIAL ONE (17:10)
[2024-01-31] MEDS ORDERED: GLYCOPYRROLATE 0.2 MG/ML 2 ML VIAL ONE (17:10)
[2024-01-31] MEDS ORDERED: MIDAZOLAM 2 MG/2 ML VIAL ONE (17:10)
[2024-01-31] MEDS ORDERED: fentaNYL (PF) 50 MCG/ML 2 ML AMP ONE (17:10)
[2024-01-31] MEDS ORDERED: PROPOFOL 10 MG/ML 20 ML VIAL IV ONE (17:10)
[2024-01-31] MEDS ORDERED: LIDOCAINE 1% INJ 10MG/ML (20 ML MDV) ONE (17:10)
[2024-01-31] MEDS ORDERED: LIDOCAINE 1%-EPI 1:100,000 20 ML VIAL ONE (17:10)
--- NOTE | 2024-01-31 17:52 | P.OP ---
Date of Procedure: 01/31/24 Preoperative Diagnosis: Left great toe amputation wound Postoperative Diagnosis: Same Procedure(s) Performed: Excisional debridement of left great toe amputation wound with skin substitute placement Anesthesia: ASHLY Surgeon: Dm Enrique Estimated Blood Loss (ml): 5 Pathology: none sent Condition: stable Disposition: PACU Indications for Procedure: 78-year-old female with history of chronic left great toe amputation wound after gangrene and amputation presents to the hospital for excisional debridement and skin substitute placement. Operative Findings: Good granulation tissue noted throughout with fibrinous tissue at the midportion. No purulent drainage noted. Good capillary refill Wound bed measured 5 cm in length by 1 cm in width by 0.5 cm in depth down to the subcutaneous tissue. No evidence of bone noted Description of Procedure: After written and informed consent was obtained for the patient and all risk benefits and complications were described the patient was brought to the operative suite and laid in a supine position. The area of the left foot was prepped and draped in usual sterile fashion after appropriate anesthetic was performed per the anesthesiologist. A timeout was performed normal fashion antibiotics were administered prior to debridement. Utilizing a curette and scalpel sharp debridement was performed at the wound bed down to bleeding subcutaneous tissue. Deep wound culture was then obtained at that time. Utilizing PuraPly AM 4 x 4 centimeter product as well as powder which was placed within the wound bed and then covered with the PuraPly AM in normal fashion. The skin substitute was then bolstered with Adaptic, Steri-Strips. 4 x 4's and Genna was then placed. Patient tolerated procedure well and was sent to PACU for recovery.
[2024-01-31] MEDS: HYDROmorphone 0.5 MG/0.5 ML SYRINGE IVP PRN (18:00)
[2024-01-31 18:39] VITALS: TEMP 97
[2024-01-31 18:40] LABS: Glucose,Whole Blood 123 mg/dL (70-110)
[2024-01-31 18:41] VITALS: RESP 16
--- NOTE | 2024-01-31 18:43 | P.ANPRN ---
Procedure Note - Anesthesia - Nerve Block Performed Left Adductor Canal Single Time Out Performed: Yes Date of Procedure: 01/31/24 Procedure Start Time: 18:17 Procedure Stop Time: 18:22 Location of Patient: Phase I Indication: Acute Post-Operative Pain, Requested by Surgeon Sedation Type: Sedate with meaningful contact maintained Preparation: Sterile Prep Position: Supine Needle Types: Pajunk Needle Gauge: 21 Ultrasound used to visualize needle placement: Yes Ultrasound used to observe medication spread: Yes Injectate: 0.5% Ropivacaine (see comment for volume) (15 ml + 10 ml lidocaine 1% with epi 1/100k) Blood Aspirated: No Pain Paresthesia on Injection Noted: No Resistance on Injection: Normal Image Stored and Saved: Yes Events: Uneventful and Well Tolerated
--- NOTE | 2024-01-31 18:45 | P.ANPRN ---
Procedure Note - Anesthesia - Nerve Block Performed Left Popliteal Single Time Out Performed: Yes Date of Procedure: 01/31/24 Procedure Start Time: 18:23 Procedure Stop Time: 18:29 Location of Patient: Phase I Indication: Acute Post-Operative Pain, Requested by Surgeon Sedation Type: Awake Preparation: Sterile Prep Position: Right Lateral Needle Types: Pajunk Needle Gauge: 21 Ultrasound used to visualize needle placement: Yes Ultrasound used to observe medication spread: Yes Injectate: 0.5% Ropivacaine (see comment for volume) (15 ml + 10 ml Lidocaine 1% with epi 1/100K) Blood Aspirated: No Pain Paresthesia on Injection Noted: No Resistance on Injection: Normal Image Stored and Saved: Yes Events: Uneventful and Well Tolerated
[2024-01-31] MEDS: HYDROcodone/APAP 7.5-325MG 1 EACH TAB PO ONE (18:57)
[2024-01-31] MEDS: KETOROLAC 15 MG/ML 1 ML VIAL IVP STA (18:58)
[2024-01-31 19:47] VITALS: BP 157/70; PULSE 78
== END 2024-01-31 19:45 | disposition home or self-care (01) ==
LOC: OR 14:50
PROVIDERS: ATTEND Surgery
DX: S91.102A Unspecified open wound of left great toe without damage to nail, initial encounter (principal); E11.9 Type 2 diabetes mellitus without complications; F10.90 Alcohol use, unspecified, uncomplicated; X58.XXXA Exposure to other specified factors, initial encounter
CPT/HCPCS: 64447; 64445; 87070; 87205; 87075; 87077; 87186; 15275; 15004; Q4196; J2250; J1100; J2405; J2001; J3010; J2795; J1885; J2704; J1170; J1596

== ENCOUNTER → 2025-01-23 | Outpatient (CLI) | payer MEDICARE ==
--- NOTE | 2025-01-23 15:33 | CT ---
EXAMINATION TYPE: CT soft tissue neck wo con DATE OF EXAM: 01/23/2025 9:36 AM COMPARISON: None. CLINICAL INDICATION: Female, 79 years old with history of R22.32 LOCALIZED SWELLING, MASS AND LUMP, L EFT UPP; PHH, LT side neck mass, dysphagia TECHNIQUE: CT of the soft tissues of the neck without IV contrast. Coronal and sagittal reconstructio ns performed. CT DLP: 518 mGycm, Automated exposure control for dose reduction was used. FINDINGS: Visualized intracranial structures, orbits and globes, paranasal sinuses, and mastoid air cells well pneumatized. Lack of IV contrast limits assessment of the cervical mucosal space, lymph nodes, and vascular struct ures. Allowing for this limitation, the nasopharynx and oropharynx appear clear. Epiglottis and prevertebral soft tissues are satisfactory. The graft there is some asymmetric soft ti ssue thickening along the right anterior wall of the false cords, axial image 43 which may be positio nal. The tracheal column and visualized upper lungs are clear. Mild atherosclerotic arch calcifications with conventional arch vessel branching anatomy. There is moderate atherosclerotic calcifications in the bilateral carotid bulbs. Small heterogeneous thyroid gland. Query any chronic hypothyroidism. The submandibular glands appear satisfactory. There is a borderline enlarged 7 mm left parotid space lymph node which may be reactive and can be re assessed at follow-up. Palpable marker placed along the left anterolateral upper neck. Directly underlying the palpable willie er is the left submandibular gland, left carotid bulb, and the left cornua of the hyoid bone. No suspicious lymphadenopathy is seen. Bones: Moderate degenerative disc disease C5-C7 levels. IMPRESSION: 1. Palpable marker along the left upper neck. Underlying the palpable marker is the left submandibula r gland, left carotid bulb that demonstrates moderate atherosclerotic calcifications, and the left co rnua of the hyoid bone. No suspicious lymphadenopathy or mass here. 2. A couple findings which warrant follow-up: asymmetric soft tissue thickening along the right anter ior false cords which may be positional. Recommend direct visualization to exclude a mucosal lesion. Also, a borderline enlarged 7 mm left parotid space lymph node which may be reactive. Consider 6 basil h follow-up CT to reassess. [facility], Workstation: [id number], 01/23/2025 3:30 PM
== END | disposition home or self-care (01) ==
LOC: RADCTMAIN 09:08
PROVIDERS: ATTEND Family Medicine
DX: I65.22 Occlusion and stenosis of left carotid artery (principal); R22.32 Localized swelling, mass and lump, left upper limb; R13.10 Dysphagia, unspecified
CPT/HCPCS: 70490